=== PATIENT | male | born 1985 | race Caucasian/White ===

== ENCOUNTER 2019-02-07 11:24 | Inpatient (IN) | payer OTHER ==
[2019-02-07 11:55] VITALS: BMI 27.8
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
[2019-02-07] MEDS ORDERED: cloNIDine HCL 0.1 MG TABLET PO PRN (14:15)
[2019-02-07] MEDS ORDERED: hydrOXYzine PAMOATE 25 MG CAPSULE (FP) PO PRN ×2 (14:15→14:30)
[2019-02-07] MEDS ORDERED: MAG HYDROX/AL HYDROX/SIMETH 30 ML UNIT-DOSE CUP PO PRN (14:15)
[2019-02-07] MEDS ORDERED: MAGNESIUM HYDROX 2400MG/30ML ORAL SUSPENSION 30 ML CUP PO PRN (14:15)
[2019-02-07] MEDS ORDERED: MELATONIN 5 MG TABLETS PO PRN (14:15)
[2019-02-07] MEDS ORDERED: MAGNESIUM CITRATE 300 ML BOTTLE PO PRN (14:15)
[2019-02-07] MEDS ORDERED: IBUPROFEN 400 MG TABLET (FP) PO PRN (14:15)
[2019-02-07] MEDS ORDERED: METHOCARBAMOL 500 MG TABLET PO PRN (14:15)
[2019-02-07] MEDS ORDERED: ACETAMINOPHEN 325 MG TABLET (FP) PO PRN ×2 (14:15)
[2019-02-07] MEDS ORDERED: BISMUTH SUBSALICYLATE 262 MG/15 ML BTL PO PRN (14:15)
[2019-02-07] MEDS ORDERED: MENTHOL/PHENOL 1 EACH UD MM PRN (14:15)
[2019-02-07] MEDS ORDERED: METHADONE HCL 10 MG TABLET (FOR DETOX USE ONLY) PO ONE ×2 (15:30→23:00)
[2019-02-07] MEDS: clonazePAM 0.5 MG TABLET PO PRN ×2 (15:50→22:26)
[2019-02-07] MEDS: THIAMINE HCL 100 MG TABLET (FP) PO SCH (22:26)
[2019-02-07 23:24] LABS: HEMATOCRIT 40.3 % (35.4-49); HEMOGLOBIN 13.2 GM/dL (11.7-16.9); MCH 26.5 pg (25.7-33.7); MCHC 32.7 g/dl (32.0-35.9); MEAN CELL VOLUME 80.9 fl (80-96); RBC 4.98 M/mm3 (4.00-5.60); RDW 14.4 % (11.9-15.9); WHITE BLOOD COUNT 4.4 K/mm3 (4.0-10.0)
[2019-02-07 23:32] LABS: ALBUMIN 3.6 g/dl (3.4-5.0); BILIRUBIN,TOTAL 0.2 mg/dL (0.2-1); CALCIUM 8.9 mg/dL (8.5-10.1); CREATININE 0.8 mg/dL (0.55-1.3); POTASSIUM 4.3 mmol/L (3.5-5.1); TOT PROT 6.4 g/dl (6.4-8.2)
[2019-02-07 23:59] LABS: MEAN PLT VOLUME 8.4 fl (7.5-11.1); PLATELET COUNT 300 K/MM3 (134-434)
[2019-02-08 00:04] LABS: PH,URINE 6.5 (5.0-8.0); URINE APPEARANCE CLEAR; URINE BILIRUBIN NEGATIVE (NEGATIVE); URINE COLOR YELLOW; URINE GLUCOSE (UA) NEGATIVE (NEGATIVE); URINE KETONE NEGATIVE (NEGATIVE); URINE LEUK ESTERASE NEGATIVE (NEGATIVE); URINE NITRITE NEGATIVE (NEGATIVE); URINE PROTEIN NEGATIVE (NEGATIVE); URINE UROBILINOGEN 0.2 mg/dL (0.2-1.0)
[2019-02-08] MEDS ORDERED: METHADONE HCL 10 MG TABLET (FOR DETOX USE ONLY) PO ONE (10:00)
[2019-02-08] MEDS: PRENATAL VITAMINS W/ FOLIC ACID TABLET (FP) PO SCH (10:11)
--- NOTE | 2019-02-08 11:11 | PN ---
BHS COWS - Scale Resting Pulse: 0= [place] 80 or Below Sweatin= Chills/Flushing Restless Observation: 1= Difficult to Sit Still Pupil Size: 1= Pupils >than Normal Bone or Joint Aches: 1= Mild Discomfort Runny Nose/ Eye Tearin= Nasal Congestion GI Upset > 30mins: 1= Stomach Cramp Tremor Observation of Outstretched Hands: 1= Tremor [place], Not Seen Yawning Observation: 1= 1-2x During Session Anxiety or Irritability: 1=Feels Anxious/Irritable Goose Flesh Skin: 0=Smooth Skin COWS Score: 9 BHS Progress Note (SOAP) Subjective: doing well with methadone detox regimen ambulating on hallway social with peers Objective: 02/08/19 11:10 Vital Signs Temperature 98.9 F 02/08/19 09:14 Pulse Rate 61 02/08/19 09:14 Respiratory Rate 18 02/08/19 09:14 Blood Pressure 121/66 02/08/19 09:14 O2 Sat by Pulse Oximetry (%) Laboratory Last Values WBC 4.4 K/mm3 (4.0-10.0) 02/07/19 14:30 RBC 4.98 M/mm3 (4.00-5.60) 02/07/19 14:30 Hgb 13.2 GM/dL (11.7-16.9) 02/07/19 14:30 Hct 40.3 % (35.4-49) 02/07/19 14:30 MCV 80.9 fl (80-96) 02/07/19 14:30 MCH 26.5 pg (25.7-33.7) 02/07/19 14:30 MCHC 32.7 g/dl (32.0-35.9) 02/07/19 14:30 RDW 14.4 % (11.9-15.9) 02/07/19 14:30 Plt Count 300 K/MM3 (134-434) 02/07/19 14:30 MPV 8.4 fl (7.5-11.1) 02/07/19 14:30 Sodium 138 mmol/L (136-145) 02/07/19 14:30 Potassium 4.3 mmol/L (3.5-5.1) 02/07/19 14:30 Chloride 108 mmol/L (98-107) H 02/07/19 14:30 Carbon Dioxide 26 mmol/L (21-32) 02/07/19 14:30 Anion Gap 4 MMOL/L (8-16) L 02/07/19 14:30 BUN 15 mg/dL (7-18) 02/07/19 14:30 Creatinine 0.8 mg/dL (0.55-1.3) 02/07/19 14:30 Est GFR (CKD-EPI)AfAm 135.08 02/07/19 14:30 Est GFR (CKD-EPI)NonAf 116.55 02/07/19 14:30 Random Glucose 107 mg/dL (74-106) H 02/07/19 14:30 Calcium 8.9 mg/dL (8.5-10.1) 02/07/19 14:30 Total Bilirubin 0.2 mg/dL (0.2-1) 02/07/19 14:30 AST 27 U/L (15-37) 02/07/19 14:30 ALT 27 U/L (13-61) 02/07/19 14:30 Alkaline Phosphatase 112 U/L (45-117) 02/07/19 14:30 Total Protein 6.4 g/dl (6.4-8.2) 02/07/19 14:30 Albumin 3.6 g/dl (3.4-5.0) 02/07/19 14:30 Urine Color Yellow 02/07/19 15:00 Urine Appearance Clear 02/07/19 15:00 Urine pH 6.5 (5.0-8.0) 02/07/19 15:00 Ur Specific [place] 1.034 (1.010-1.035) 02/07/19 15:00 Urine Protein Negative (NEGATIVE) 02/07/19 15:00 Urine Glucose (UA) Negative (NEGATIVE) 02/07/19 15:00 Urine Ketones Negative (NEGATIVE) 02/07/19 15:00 Urine Blood Negative (NEGATIVE) 02/07/19 15:00 Urine Nitrite Negative (NEGATIVE) 02/07/19 15:00 Urine Bilirubin Negative (NEGATIVE) 02/07/19 15:00 Urine Urobilinogen 0.2 mg/dL (0.2-1.0) 02/07/19 15:00 Ur Leukocyte Esterase Negative (NEGATIVE) 02/07/19 15:00 RPR Titer Nonreactive (NONREACTIVE) 02/07/19 14:30 HIV 1&2 Antibody Screen Negative 02/07/19 14:05 HIV P24 Antigen Negative 02/07/19 14:05 lab noted Assessment: 02/08/19 11:10 withdrawal sx Plan: continue detox discuss medication assisted maintenance treatment program
[2019-02-08] MEDS: clonazePAM 0.5 MG TABLET PO PRN ×2 (17:30→23:23)
[2019-02-08] MEDS: THIAMINE HCL 100 MG TABLET (FP) PO SCH (22:08)
[2019-02-09] MEDS: PRENATAL VITAMINS W/ FOLIC ACID TABLET (FP) PO SCH (09:21)
[2019-02-09] MEDS: clonazePAM 0.5 MG TABLET PO PRN ×3 (09:23→23:27)
[2019-02-09] MEDS ORDERED: METHADONE HCL 10 MG TABLET (FOR DETOX USE ONLY) PO ONE (10:00)
--- NOTE | 2019-02-09 12:26 | PN ---
BHS COWS - Scale Resting Pulse: 0= [place] 80 or Below Sweatin= Chills/Flushing Restless Observation: 1= Difficult to Sit Still Pupil Size: 0= Normal to Room Light Bone or Joint Aches: 1= Mild Discomfort Runny Nose/ Eye Tearin= Nasal Congestion GI Upset > 30mins: 0= None Tremor Observation of Outstretched Hands: 1= Tremor [place], Not Seen Yawning Observation: 0= None Anxiety or Irritability: 1=Feels Anxious/Irritable Goose Flesh Skin: 0=Smooth Skin COWS Score: 6 BHS Progress Note (SOAP) Subjective: body aches otherwise feeling ok resting on bed encourage consider medication assisted maintenance treatment program Objective: 02/09/19 12:28 Vital Signs Temperature 97.6 F 02/09/19 09:49 Pulse Rate 71 02/09/19 09:49 Respiratory Rate 18 02/09/19 09:49 Blood Pressure 118/68 02/09/19 09:49 O2 Sat by Pulse Oximetry (%) Laboratory Last Values WBC 4.4 K/mm3 (4.0-10.0) 02/07/19 14:30 RBC 4.98 M/mm3 (4.00-5.60) 02/07/19 14:30 Hgb 13.2 GM/dL (11.7-16.9) 02/07/19 14:30 Hct 40.3 % (35.4-49) 02/07/19 14:30 MCV 80.9 fl (80-96) 02/07/19 14:30 MCH 26.5 pg (25.7-33.7) 02/07/19 14:30 MCHC 32.7 g/dl (32.0-35.9) 02/07/19 14:30 RDW 14.4 % (11.9-15.9) 02/07/19 14:30 Plt Count 300 K/MM3 (134-434) 02/07/19 14:30 MPV 8.4 fl (7.5-11.1) 02/07/19 14:30 Sodium 138 mmol/L (136-145) 02/07/19 14:30 Potassium 4.3 mmol/L (3.5-5.1) 02/07/19 14:30 Chloride 108 mmol/L (98-107) H 02/07/19 14:30 Carbon Dioxide 26 mmol/L (21-32) 02/07/19 14:30 Anion Gap 4 MMOL/L (8-16) L 02/07/19 14:30 BUN 15 mg/dL (7-18) 02/07/19 14:30 Creatinine 0.8 mg/dL (0.55-1.3) 02/07/19 14:30 Est GFR (CKD-EPI)AfAm 135.08 02/07/19 14:30 Est GFR (CKD-EPI)NonAf 116.55 02/07/19 14:30 Random Glucose 107 mg/dL (74-106) H 02/07/19 14:30 Calcium 8.9 mg/dL (8.5-10.1) 02/07/19 14:30 Total Bilirubin 0.2 mg/dL (0.2-1) 02/07/19 14:30 AST 27 U/L (15-37) 02/07/19 14:30 ALT 27 U/L (13-61) 02/07/19 14:30 Alkaline Phosphatase 112 U/L (45-117) 02/07/19 14:30 Total Protein 6.4 g/dl (6.4-8.2) 02/07/19 14:30 Albumin 3.6 g/dl (3.4-5.0) 02/07/19 14:30 Urine Color Yellow 02/07/19 15:00 Urine Appearance Clear 02/07/19 15:00 Urine pH 6.5 (5.0-8.0) 02/07/19 15:00 Ur Specific [place] 1.034 (1.010-1.035) 02/07/19 15:00 Urine Protein Negative (NEGATIVE) 02/07/19 15:00 Urine Glucose (UA) Negative (NEGATIVE) 02/07/19 15:00 Urine Ketones Negative (NEGATIVE) 02/07/19 15:00 Urine Blood Negative (NEGATIVE) 02/07/19 15:00 Urine Nitrite Negative (NEGATIVE) 02/07/19 15:00 Urine Bilirubin Negative (NEGATIVE) 02/07/19 15:00 Urine Urobilinogen 0.2 mg/dL (0.2-1.0) 02/07/19 15:00 Ur Leukocyte Esterase Negative (NEGATIVE) 02/07/19 15:00 RPR Titer Nonreactive (NONREACTIVE) 02/07/19 14:30 HIV 1&2 Antibody Screen Negative 02/07/19 14:05 HIV P24 Antigen Negative 02/07/19 14:05 lab noted Assessment: 02/09/19 12:31 opiate withdrawal sx Plan: continue detox
[2019-02-09] MEDS: THIAMINE HCL 100 MG TABLET (FP) PO SCH (22:12)
[2019-02-10] MEDS ORDERED: METHADONE HCL 10 MG TABLET (FOR DETOX USE ONLY) PO ONE (10:00)
[2019-02-10] MEDS: PRENATAL VITAMINS W/ FOLIC ACID TABLET (FP) PO SCH (10:17)
[2019-02-10] MEDS: clonazePAM 0.5 MG TABLET PO PRN (10:18)
[2019-02-10 13:04] VITALS: BP 122/74; PULSE 67; TEMP 98.4
--- NOTE | 2019-02-10 16:39 | PN ---
BHS COWS - Scale Resting Pulse: 0= [place] 80 or Below Sweatin= No chills or Flushing Restless Observation: 0= Sits Still Pupil Size: 0= Normal to Room Light Bone or Joint Aches: 0= None Runny Nose/ Eye Tearin= None GI Upset > 30mins: 0= None Tremor Observation of Outstretched Hands: 0= None Yawning Observation: 1= 1-2x During Session Anxiety or Irritability: 0= None Goose Flesh Skin: 0=Smooth Skin COWS Score: 1 BHS Progress Note (SOAP) Subjective: Patient denies current Withdrawal / Detox symptoms and reports that he feels well overall. Objective: PATIENT A & O X 3, OBSERVED AMBULATING ON UNIT UNASSISTED. IN NO ACUTE DISTRESS. 02/10/19 16:35 Vital Signs Temperature 98.4 F 02/10/19 13:03 Pulse Rate 67 02/10/19 13:03 Respiratory Rate 18 02/10/19 13:03 Blood Pressure 122/74 02/10/19 13:03 O2 Sat by Pulse Oximetry (%) Laboratory Tests 02/07/19 02/07/19 02/07/19 14:05 14:30 14:30 WBC 4.4 RBC 4.98 Hgb 13.2 Hct 40.3 MCV 80.9 MCH 26.5 MCHC 32.7 RDW 14.4 Plt Count 300 MPV 8.4 Sodium 138 Potassium 4.3 Chloride 108 H Carbon Dioxide 26 Anion Gap 4 L BUN 15 Creatinine 0.8 Est GFR (CKD-EPI)AfAm 135.08 Est GFR (CKD-EPI)NonAf 116.55 Random Glucose 107 H Calcium 8.9 Total Bilirubin 0.2 AST 27 ALT 27 Alkaline Phosphatase 112 Total Protein 6.4 Albumin 3.6 Urine Color Urine Appearance Urine pH Ur Specific [place] Urine Protein Urine Glucose (UA) Urine Ketones Urine Blood Urine Nitrite Urine Bilirubin Urine Urobilinogen Ur Leukocyte Esterase RPR Titer HIV 1&2 Antibody Screen Negative HIV P24 Antigen Negative 02/07/19 02/07/19 14:30 15:00 WBC RBC Hgb Hct MCV MCH MCHC RDW Plt Count MPV Sodium Potassium Chloride Carbon Dioxide Anion Gap BUN Creatinine Est GFR (CKD-EPI)AfAm Est GFR (CKD-EPI)NonAf Random Glucose Calcium Total Bilirubin AST ALT Alkaline Phosphatase Total Protein Albumin Urine Color Yellow Urine Appearance Clear Urine pH 6.5 Ur Specific [place] 1.034 Urine Protein Negative Urine Glucose (UA) Negative Urine Ketones Negative Urine Blood Negative Urine Nitrite Negative Urine Bilirubin Negative Urine Urobilinogen 0.2 Ur Leukocyte Esterase Negative RPR Titer Nonreactive HIV 1&2 Antibody Screen HIV P24 Antigen LABS NOTED. Assessment: 02/10/19 16:36 COMPLETION OF DETOX REGIMEN. 02/10/19 16:38 Plan: SINCE PATIENT DENIES CURRENT WITHDRAWAL / DETOX SYMPTOMS AND REPORTS THAT HE FEELS WELL OVERALL, AT PATIENTS REQUEST, HE WAS GRANTED AN EARLY DISCHARGE FROM DETOX UNIT TODAY SO THAT HE MAY RETURN HOME FOR THE NEXT COUPLE OF DAYS TO ATTEND TO PERSONAL MATTERS, THEN HE WILL GO ON TO [facility] ([place], [place]) FOR AFTERCARE.
--- NOTE | 2019-02-10 16:43 | DS ---
[facility] Detox Discharge Summary Admission Date: 02/07/19 Discharge Date: 02/10/19 - History Present History: Cocaine Dependence, Opioid Dependence Additional Comments: PATIENT DENIES CURRENT WITHDRAWAL / DETOX SYMPTOMS AND REPORTS THAT HE FEELS WELL OVERALL AT TIME OF DISCHARGE FROM DETOX UNIT. PATIENT RETURNING HOME FOR NEXT COUPLE OF DAYS TO ATTEND TO PERSONAL MATTERS, THEN WILL GO ON TO [facility] ([place], [place]) ON 02/13/2019 FOR AFTERCARE. Pertinent Past History: Tobacco Use Disorder, History of Thyroid Disorder, Blisters of Bilateral Feet. - Physical Exam Results Vital Signs: Vital Signs Temperature 98.4 F 02/10/19 13:03 Pulse Rate 67 02/10/19 13:03 Respiratory Rate 18 02/10/19 13:03 Blood Pressure 122/74 02/10/19 13:03 O2 Sat by Pulse Oximetry (%) Pertinent Admission Physical Exam Findings: WITHDRAWAL SYMPTOMS. Laboratory Tests 02/07/19 02/07/19 02/07/19 14:05 14:30 14:30 WBC 4.4 RBC 4.98 Hgb 13.2 Hct 40.3 MCV 80.9 MCH 26.5 MCHC 32.7 RDW 14.4 Plt Count 300 MPV 8.4 Sodium 138 Potassium 4.3 Chloride 108 H Carbon Dioxide 26 Anion Gap 4 L BUN 15 Creatinine 0.8 Est GFR (CKD-EPI)AfAm 135.08 Est GFR (CKD-EPI)NonAf 116.55 Random Glucose 107 H Calcium 8.9 Total Bilirubin 0.2 AST 27 ALT 27 Alkaline Phosphatase 112 Total Protein 6.4 Albumin 3.6 Urine Color Urine Appearance Urine pH Ur Specific [place] Urine Protein Urine Glucose (UA) Urine Ketones Urine Blood Urine Nitrite Urine Bilirubin Urine Urobilinogen Ur Leukocyte Esterase RPR Titer HIV 1&2 Antibody Screen Negative HIV P24 Antigen Negative 02/07/19 02/07/19 14:30 15:00 WBC RBC Hgb Hct MCV MCH MCHC RDW Plt Count MPV Sodium Potassium Chloride Carbon Dioxide Anion Gap BUN Creatinine Est GFR (CKD-EPI)AfAm Est GFR (CKD-EPI)NonAf Random Glucose Calcium Total Bilirubin AST ALT Alkaline Phosphatase Total Protein Albumin Urine Color Yellow Urine Appearance Clear Urine pH 6.5 Ur Specific [place] 1.034 Urine Protein Negative Urine Glucose (UA) Negative Urine Ketones Negative Urine Blood Negative Urine Nitrite Negative Urine Bilirubin Negative Urine Urobilinogen 0.2 Ur Leukocyte Esterase Negative RPR Titer Nonreactive HIV 1&2 Antibody Screen HIV P24 Antigen LABS NOTED. - Treatment Hospital Course: Detox Protocol Followed, Detoxed Safely, Responded well, Discharged Condition Good, Rehab Referral Accepted Patient has Accepted a Rehab Referral to: [facility] ([place], [place]). - Medication Discharge Medications: Ambulatory Orders NK [No Known Home Medication] 02/07/19 - Diagnosis (1) Cocaine use disorder Current Visit: Yes Status: Acute (2) Friction blister of the foot Current Visit: Yes Status: Acute Qualifiers: Encounter type: subsequent encounter Laterality: unspecified laterality Qualified Code(s): S90.829D - Blister (nonthermal), unspecified foot, subsequent encounter (3) Opioid use disorder Current Visit: Yes Status: Acute (4) Tobacco use disorder Current Visit: Yes Status: Acute - AMA Did Patient Leave Against Medical Advice: No
[2019-02-11] MEDS ORDERED: METHADONE HCL 5 MG TABLET (FOR DETOX USE ONLY) PO ONE (06:00)
== END 2019-02-10 17:15 | disposition home or self-care (01) | DRG 773 ==
LOC: YASAS 11:24 → Y3N 14:43
PROVIDERS: ADMIT Surgery; ATTEND Surgery
PROC: HZ2ZZZZ Detoxification Services for Substance Abuse Treatment (ICD-10-PCS; principal; 2019-02-07)
DX: F11.23 Opioid dependence with withdrawal (principal); F14.20 Cocaine dependence, uncomplicated; F17.210 Nicotine dependence, cigarettes, uncomplicated; S90.829D Blister (nonthermal), unspecified foot, subsequent encounter; X58.XXXD Exposure to other specified factors, subsequent encounter
CPT/HCPCS: 36415; 80053; 81003; 85027; 86593; 87389; J0735

== ENCOUNTER 2019-03-25 18:50 | Inpatient (IN) | payer OTHER ==
--- NOTE | 2019-03-25 23:47 | HP ---
COWS - Scale Resting Pulse: 0= [place] 80 or Below Sweatin=Flushed/Facial Moisture Restless Observation: 1= Difficult to Sit Still Pupil Size: 1= Pupils >than Normal Bone or Joint Aches: 4=Acute Joint/Muscle Pain Runny Nose/ Eye Tearin= None GI Upset > 30mins: 0= None Tremor Observation: 0= None Yawning Observation: 1= 1-2x During Session Anxiety or Irritability: 2=Irritable/Anxious Goose Flesh Skin: 0=Smooth Skin COWS Score: 11 CIWA Score - Admission Criteria OASAS Guidelines: Admission for Medically Managed Detox: Requires at least one of the followin. CIWA greater than 12 2. Seizures within the past 24 hours 3. Delirium tremens within the past 24 hours 4. Hallucinations within the past 24 hours 5. Acute intervention needed for co occurring medical disorder 6. Acute intervention needed for co occurring psychiatric disorder 7. Severe withdrawal that cannot be handled at a lower level of care (continued vomiting, continued diarrhea, abnormal vital signs) requiring intravenous medication and/or fluids 8. Admission [facility] Chief Complaint: c/o withdrawal sx's Allergies/Adverse Reactions: Allergies Allergy/AdvReac Type Severity Reaction Status Date / Time No Known Allergies Allergy Verified 03/25/19 22:50 History of Present Illness: 33 y.o. male with hx/o heroin dependence here for detox. c/o withdrawal sx's, cows 11.he is self referred. last here 4 weeks ago. reports relase after dc. longest clean time 8 months.. reports hx/o drug od x1. denies sz d/o. homeless, unemployed, denies legals Exam Limitations: No Limitations - Ebola screening Have you traveled outside of the country in the last 21 days: No Have you been sick,other than usual withdrawal symptoms: No Do you have a fever: No - Review of Systems Constitutional: Chills, Loss of Appetite, Malaise, Night Sweats, Changes in sleep EENT: reports: No Symptoms Reported Respiratory: reports: No Symptoms reported Cardiac: reports: No Symptoms Reported GI: reports: Poor Fluid Intake, Abdominal cramping : reports: No Symptoms Reported Musculoskeletal: reports: Back Pain Integumentary: reports: Other (blisters to ble) Neuro: reports: No Symptoms reported Endocrine: reports: No Symptoms Reported Hematology: reports: No Symptoms Reported Psychiatric: reports: Orientated x3, Agitated (irritable) Other Systems: Reviewed and Negative Patient History - Patient Medical History Hx Anemia: No Hx Asthma: No Hx Chronic Obstructive Pulmonary Disease (COPD): No Hx Cancer: No Hx Cardiac Disorders: No Hx Congestive Heart Failure: No Hx Hypertension: No Hx Hypercholesterolemia: No Hx Pacemaker: No HX Cerebrovascular Accident: No Hx Seizures: No Hx Dementia: No Hx Diabetes: No Hx Gastrointestinal Disorders: No Hx Liver Disease: No Hx Genitourinary Disorders: No Hx Sexually Transmitted Disorders: No Hx Renal Disease (ESRD): No Hx Thyroid Disease: No Hx Human Immunodeficiency Virus (HIV): No Hx Hepatitis C: No Hx Depression: No Hx Suicide Attempt: No Hx Bipolar Disorder: No Hx Schizophrenia: No - Patient Surgical History Past Surgical History: No Hx Neurologic Surgery: No Hx Cataract Extraction: No Hx Cardiac Surgery: No Hx Lung Surgery: No Hx Breast Surgery: No Hx Breast Biopsy: No Hx Abdominal Surgery: No Hx Appendectomy: No Hx Cholecystectomy: No Hx Genitourinary Surgery: No Hx Section: No Hx Orthopedic Surgery: No Anesthesia Reaction: No - PPD History Previous Implant?: Yes Documented Results: Negative w/proof Date: 02/09/19 Results: 0mm PPD to be Administered?: No - Smoking Cessation Smoking history: Current every day smoker Have you smoked in the past 12 months: Yes Aproximately how many cigarettes per day: 20 Cigars Per Day: 0 Hx Chewing Tobacco Use: No Initiated information on smoking cessation: Yes 'Breaking Loose' booklet given: 03/25/19 - Substance & Tx. History Hx Alcohol Use: No Hx Substance Use: No Substance Use Type: Cocaine, Heroin Hx Substance Use Treatment: Yes ([facility]) - Substances abused Cocaine Substance route: Inhalation Frequency: Daily Amount used: $20 Age of first use: 15 Date of last use: 03/25/19 Heroin Substance route: Inhalation Frequency: Daily Amount used: 10-15 BAGS Age of first use: 29 Date of last use: 03/25/19 Family Disease History - Family Disease History Family Disease History: Other: Father (addiction to heroin/cocaine), Sister ( lupus) Admission Physical Exam BHS - Vital Signs Vital Signs: Vital Signs - 24 hr 03/25/19 22:49 Temperature 98.4 F Pulse Rate 59 L Respiratory 18 Rate Blood Pressure 109/74 - Physical General Appearance: Yes: Moderate Distress, Irritable, Anxious HEENTM: Yes: EOMI, Normocephalic, Normal Voice, BREANNA, Pharynx Normal Respiratory: Yes: Chest Non-Tender, Lungs Clear, Normal Breath Sounds, No Respiratory Distress, No Accessory Muscle Use Breast: Yes: Within Normal Limits, Axillae without masses Cardiology: Yes: Regular Rhythm, Regular Rate, S1, S2 Abdominal: Yes: Normal Bowel Sounds, Non Tender, Soft Genitourinary: Yes: Within Normal Limits Back: Yes: Normal Inspection Musculoskeletal: Yes: full range of Motion, Gait Steady Extremities: Yes: Normal Range of Motion, Non-Tender Neurological: Yes: Fully Oriented, Alert, Depressed Affect Integumentary: Yes: Warm, Moist Lymphatic: Yes: Within Normal Limits - Diagnostic (1) Opioid dependence with withdrawal Current Visit: Yes Status: Acute (2) Cocaine abuse, uncomplicated Current Visit: Yes Status: Acute (3) Homeless Current Visit: Yes Status: Suspected (4) At risk for dehydration due to poor fluid intake Current Visit: Yes Status: Acute (5) Substance induced mood disorder Current Visit: Yes Status: Suspected Cleared for Admission [facility] - Detox or Rehab [facility] Level of Care: Medically Managed Detox Regimen/Protocol: Methadone Claeared for Rehab Admission: No Breathalyzer - Breathalyzer Breathalyzer: 0 Urine Drug Screen - Test Device Lot number: [id number] Expiration date: 11/24/20 - Control Is test valid?: Yes - Results Drug screen NEGATIVE: No Urine drug screen results: THC-Marijuana, LAN-Cocaine, MET-Methamphetamine, FEN- Fentanyl, MOP-Opiates, MTD-Methadone, BZO-Benzodiazepines Inpatient Rehab Admission - Rehab Decision to Admit Inpatient rehab admission?: No
[2019-03-25] MEDS ORDERED: P-EPHED 60MG/TRIPROLIDI 2.5MG TABLET PO PRN (23:56)
[2019-03-25] MEDS ORDERED: guaiFENesin 200 MG/10 ML 10 ML UNIT-DOSE CUPS PO PRN (23:56)
[2019-03-25] MEDS ORDERED: MENTHOL/PHENOL 1 EACH UD MM PRN (23:56)
[2019-03-25] MEDS ORDERED: IBUPROFEN 400 MG TABLET (FP) PO PRN (23:56)
[2019-03-25] MEDS ORDERED: METHOCARBAMOL 500 MG TABLET PO PRN (23:56)
[2019-03-25] MEDS ORDERED: hydrOXYzine PAMOATE 25 MG CAPSULE (FP) PO PRN (23:56)
[2019-03-25] MEDS ORDERED: MELATONIN 5 MG TABLETS PO PRN (23:56)
[2019-03-25] MEDS ORDERED: MAGNESIUM HYDROX 2400MG/30ML ORAL SUSPENSION 30 ML CUP PO PRN (23:56)
[2019-03-25] MEDS ORDERED: BISMUTH SUBSALICYLATE 524 MG/30 ML UD PO PRN (23:56)
[2019-03-25] MEDS ORDERED: ONDANSETRON *ODT* 4 MG TABLET SL PRN (23:56)
[2019-03-25] MEDS ORDERED: NICOTINE POLACRILEX 2 MG GUM BUC PRN (23:56)
[2019-03-25] MEDS ORDERED: DICYCLOMINE HCL 10 MG CAPSULE PO PRN (23:56)
[2019-03-25] MEDS ORDERED: MAGNESIUM CITRATE 300 ML BOTTLE PO PRN (23:56)
[2019-03-25] MEDS ORDERED: MAG HYDROX/AL HYDROX/SIMETH 30 ML UNIT-DOSE CUP PO PRN (23:56)
[2019-03-25] MEDS ORDERED: ACETAMINOPHEN 325 MG TABLET (FP) PO PRN ×2 (23:56)
[2019-03-26] MEDS ORDERED: cloNIDine HCL 0.1 MG TABLET PO PRN (00:02)
[2019-03-26] MEDS ORDERED: METHADONE HCL 10 MG TABLET (FOR DETOX USE ONLY) PO ONE ×2 (00:02→10:00)
[2019-03-26 09:33] LABS: ALBUMIN 3.2 g/dl (3.4-5.0); BILIRUBIN,TOTAL 0.3 mg/dL (0.2-1); CALCIUM 8.6 mg/dL (8.5-10.1); POTASSIUM 4.1 mmol/L (3.5-5.1); TOT PROT 6.3 g/dl (6.4-8.2)
[2019-03-26 09:45] LABS: HEMATOCRIT 38.3 % (35.4-49); HEMOGLOBIN 12.5 GM/dL (11.7-16.9); MCH 26.3 pg (25.7-33.7); MCHC 32.6 g/dl (32.0-35.9); MEAN CELL VOLUME 80.8 fl (80-96); MEAN PLT VOLUME 7.9 fl (7.5-11.1); RBC 4.74 M/mm3 (4.00-5.60); RDW 14.2 % (11.9-15.9); WHITE BLOOD COUNT 5.6 K/mm3 (4.0-10.0)
[2019-03-26] MEDS ORDERED: NICOTINE 14 MG/24 HOURS TOPICAL PATCH TD SCH (10:00)
[2019-03-26 10:12] LABS: PLATELET COUNT 338 K/MM3 (134-434)
[2019-03-26] MEDS: PRENATAL VITAMINS W/ FOLIC ACID TABLET (FP) PO SCH (10:22)
[2019-03-26] MEDS: NICOTINE 14 MG/24 HOURS TOPICAL PATCH TD SCH (10:22)
[2019-03-26 10:43] LABS: PH,URINE 5.5 (5.0-8.0); URINE APPEARANCE TURBID; URINE BILIRUBIN NEGATIVE (NEGATIVE); URINE COLOR YELLOW; URINE GLUCOSE (UA) NEGATIVE (NEGATIVE); URINE KETONE TRACE (NEGATIVE); URINE LEUK ESTERASE NEGATIVE (NEGATIVE); URINE NITRITE NEGATIVE (NEGATIVE); URINE PROTEIN NEGATIVE (NEGATIVE)
--- NOTE | 2019-03-26 12:15 | PN ---
S CIWA - CIWA Score Nausea/Vomitin-No Nausea/No Vomiting Muscle Tremors: 3 Anxiety: 4-Mod. Anxious/Guarded Agitation: 4-Moderately Restless Paroxysmal Sweats: 1-Minimal Palms Moist Orientation: 0-Oriented Tacttile Disturbances: 0-None Auditory Disturbances: 0-None Visual Disturbances: 0-None Headache: 0-None Present CIWA-Ar Total Score: 12 BHS COWS - Scale Resting Pulse: 0= [place] 80 or Below Sweatin= Chills/Flushing Restless Observation: 3= Extraneous Movement Pupil Size: 0= Normal to Room Light Bone or Joint Aches: 4=Acute Joint/Muscle Pain Runny Nose/ Eye Tearin= None GI Upset > 30mins: 1= Stomach Cramp Tremor Observation of Outstretched Hands: 1= Tremor [place], Not Seen Yawning Observation: 1= 1-2x During Session Anxiety or Irritability: 2=Irritable/Anxious Goose Flesh Skin: 0=Smooth Skin COWS Score: 13 S Progress Note (SOAP) Subjective: c/o anxiety,irritability,hot/cold chills,body aches,"tossed/turned" last night- intermittent sleep. Objective: 03/26/19 12:17 Vital Signs - 24 hr 03/25/19 03/26/19 03/26/19 22:49 00:50 00:53 Temperature 98.4 F 96.7 F L Pulse Rate 59 L 58 L Respiratory 18 18 18 Rate Blood Pressure 109/74 109/69 03/26/19 03/26/19 03/26/19 03:46 06:19 09:42 Temperature 97.2 F L 97.5 F L Pulse Rate 51 L 57 L Respiratory 18 18 18 Rate Blood Pressure 100/58 L 92/54 L Laboratory Tests 03/26/19 03/26/19 03/26/19 07:30 07:30 07:30 WBC 5.6 RBC 4.74 Hgb 12.5 Hct 38.3 MCV 80.8 MCH 26.3 MCHC 32.6 RDW 14.2 Plt Count 338 MPV 7.9 Sodium 142 Potassium 4.1 Chloride 105 Carbon Dioxide 32 Anion Gap 5 L BUN 15.0 Creatinine 1.0 Est GFR (CKD-EPI)AfAm 113.31 Est GFR (CKD-EPI)NonAf 97.76 Random Glucose 78 Calcium 8.6 Total Bilirubin 0.3 AST 13 L ALT 18 Alkaline Phosphatase 113 Total Protein 6.3 L Albumin 3.2 L Urine Color Urine Appearance Urine pH Ur Specific [place] Urine Protein Urine Glucose (UA) Urine Ketones Urine Blood Urine Nitrite Urine Bilirubin Urine Urobilinogen Ur Leukocyte Esterase RPR Titer Nonreactive 03/26/19 08:40 WBC RBC Hgb Hct MCV MCH MCHC RDW Plt Count MPV Sodium Potassium Chloride Carbon Dioxide Anion Gap BUN Creatinine Est GFR (CKD-EPI)AfAm Est GFR (CKD-EPI)NonAf Random Glucose Calcium Total Bilirubin AST ALT Alkaline Phosphatase Total Protein Albumin Urine Color Yellow Urine Appearance Turbid Urine pH 5.5 Ur Specific [place] 1.036 H Urine Protein Negative Urine Glucose (UA) Negative Urine Ketones Trace H Urine Blood Negative Urine Nitrite Negative Urine Bilirubin Negative Urine Urobilinogen 1.0 Ur Leukocyte Esterase Negative RPR Titer Assessment: 03/26/19 12:18 withdrawal sx Plan: continue detox increase po fluids
--- NOTE | 2019-03-26 12:45 | PN ---
Elaine Progress Note Note: Patient approached twice at bedtime by fha underwriter to solicitate interview. Told fha underwriter::" I'm don't feel good right now. can we do it later"
[2019-03-26] MEDS: THIAMINE HCL 100 MG TABLET (FP) PO SCH (22:32)
[2019-03-26] MEDS: clonazePAM 0.5 MG TABLET PO PRN (22:33)
[2019-03-27] MEDS ORDERED: METHADONE HCL 10 MG TABLET (FOR DETOX USE ONLY) PO ONE (10:00)
[2019-03-27] MEDS: PRENATAL VITAMINS W/ FOLIC ACID TABLET (FP) PO SCH (10:22)
[2019-03-27] MEDS: clonazePAM 0.5 MG TABLET PO PRN ×3 (10:24→22:38)
[2019-03-27] MEDS: NICOTINE 14 MG/24 HOURS TOPICAL PATCH TD SCH (10:24)
--- NOTE | 2019-03-27 15:49 | PN ---
BHS COWS - Scale Resting Pulse: 0= [place] 80 or Below Sweatin= Chills/Flushing Restless Observation: 1= Difficult to Sit Still Pupil Size: 0= Normal to Room Light Bone or Joint Aches: 2= Severe Diffuse Aches Runny Nose/ Eye Tearin= None GI Upset > 30mins: 0= None Tremor Observation of Outstretched Hands: 0= None Yawning Observation: 1= 1-2x During Session Anxiety or Irritability: 2=Irritable/Anxious Goose Flesh Skin: 3=Piloerection COWS Score: 10 BHS Progress Note (SOAP) Subjective: Body Aches, Sweating, Interrupted Sleep. Objective: PATIENT A & O X 3, OBSERVED AMBULATING ON UNIT UNASSISTED. IN NO ACUTE DISTRESS. 03/27/19 15:47 Vital Signs Temperature 98.2 F 03/27/19 13:27 Pulse Rate 56 L 03/27/19 13:27 Respiratory Rate 18 03/27/19 13:27 Blood Pressure 116/69 03/27/19 13:27 O2 Sat by Pulse Oximetry (%) Laboratory Tests 03/26/19 03/26/19 03/26/19 07:30 07:30 07:30 WBC 5.6 RBC 4.74 Hgb 12.5 Hct 38.3 MCV 80.8 MCH 26.3 MCHC 32.6 RDW 14.2 Plt Count 338 MPV 7.9 Sodium 142 Potassium 4.1 Chloride 105 Carbon Dioxide 32 Anion Gap 5 L BUN 15.0 Creatinine 1.0 Est GFR (CKD-EPI)AfAm 113.31 Est GFR (CKD-EPI)NonAf 97.76 Random Glucose 78 Calcium 8.6 Total Bilirubin 0.3 AST 13 L ALT 18 Alkaline Phosphatase 113 Total Protein 6.3 L Albumin 3.2 L Urine Color Urine Appearance Urine pH Ur Specific [place] Urine Protein Urine Glucose (UA) Urine Ketones Urine Blood Urine Nitrite Urine Bilirubin Urine Urobilinogen Ur Leukocyte Esterase RPR Titer Nonreactive 03/26/19 08:40 WBC RBC Hgb Hct MCV MCH MCHC RDW Plt Count MPV Sodium Potassium Chloride Carbon Dioxide Anion Gap BUN Creatinine Est GFR (CKD-EPI)AfAm Est GFR (CKD-EPI)NonAf Random Glucose Calcium Total Bilirubin AST ALT Alkaline Phosphatase Total Protein Albumin Urine Color Yellow Urine Appearance Turbid Urine pH 5.5 Ur Specific [place] 1.036 H Urine Protein Negative Urine Glucose (UA) Negative Urine Ketones Trace H Urine Blood Negative Urine Nitrite Negative Urine Bilirubin Negative Urine Urobilinogen 1.0 Ur Leukocyte Esterase Negative RPR Titer LABS NOTED. Assessment: 03/27/19 15:47 WITHDRAWAL SYMPTOMS. Plan: CONTINUE DETOX.
[2019-03-27] MEDS: THIAMINE HCL 100 MG TABLET (FP) PO SCH (22:19)
--- NOTE | 2019-03-28 09:57 | PN ---
BHS COWS - Scale Resting Pulse: 0= [place] 80 or Below Sweatin= Chills/Flushing Restless Observation: 1= Difficult to Sit Still Pupil Size: 0= Normal to Room Light Bone or Joint Aches: 1= Mild Discomfort Runny Nose/ Eye Tearin= Nasal Congestion GI Upset > 30mins: 1= Stomach Cramp Tremor Observation of Outstretched Hands: 1= Tremor [place], Not Seen Yawning Observation: 1= 1-2x During Session Anxiety or Irritability: 1=Feels Anxious/Irritable Goose Flesh Skin: 0=Smooth Skin COWS Score: 8 BHS Progress Note (SOAP) Subjective: alert,irritable,anxious,interrupted sleep,pain in the body Objective: 03/28/19 09:56 Vital Signs Temperature 97.4 F L 03/28/19 09:16 Pulse Rate 65 03/28/19 09:16 Respiratory Rate 18 03/28/19 09:16 Blood Pressure 123/72 03/28/19 09:16 O2 Sat by Pulse Oximetry (%) Assessment: 03/28/19 09:56 withdrawal symptom Plan: continue detox
[2019-03-28] MEDS ORDERED: METHADONE HCL 10 MG TABLET (FOR DETOX USE ONLY) PO ONE (10:00)
[2019-03-28] MEDS: clonazePAM 0.5 MG TABLET PO PRN ×2 (10:30→17:01)
[2019-03-28] MEDS: NICOTINE 14 MG/24 HOURS TOPICAL PATCH TD SCH (10:30)
[2019-03-28] MEDS: PRENATAL VITAMINS W/ FOLIC ACID TABLET (FP) PO SCH (10:30)
[2019-03-28 17:18] VITALS: BP 126/80; PULSE 63; TEMP 97.9
[2019-03-29] MEDS ORDERED: METHADONE HCL 10 MG TABLET (FOR DETOX USE ONLY) PO ONE (10:00)
[2019-03-30] MEDS ORDERED: METHADONE HCL 5 MG TABLET (FOR DETOX USE ONLY) PO ONE (06:00)
== END 2019-03-28 18:25 | disposition left against medical advice (07) | DRG 770 ==
LOC: YASAS 18:50 → Y3N 23:47
PROVIDERS: ADMIT Surgery; ATTEND Surgery
PROC: HZ2ZZZZ Detoxification Services for Substance Abuse Treatment (ICD-10-PCS; principal; 2019-03-25)
DX: F11.23 Opioid dependence with withdrawal (principal); F13.20 Sedative, hypnotic or anxiolytic dependence, uncomplicated; F17.210 Nicotine dependence, cigarettes, uncomplicated; F19.24 Other psychoactive substance dependence with psychoactive substance-induced mood disorder; Z91.89 Other specified personal risk factors, not elsewhere classified; Z59.0 Homelessness
CPT/HCPCS: 36415; 80053; 81003; 85027; 86593

== ENCOUNTER 2019-08-31 15:43 | Inpatient (IN) | payer OTHER ==
[2019-08-31 18:15] VITALS: BMI 23.9
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
[2019-08-31] MEDS ORDERED: BISMUTH SUBSALICYLATE 524 MG/30 ML UD PO PRN (20:56)
[2019-08-31] MEDS ORDERED: ACETAMINOPHEN 325 MG TABLET (FP) PO PRN ×2 (20:56)
[2019-08-31] MEDS ORDERED: MELATONIN 5 MG TABLETS PO PRN (20:56)
[2019-08-31] MEDS ORDERED: NICOTINE POLACRILEX 2 MG GUM BUC PRN (20:56)
[2019-08-31] MEDS ORDERED: hydrOXYzine PAMOATE 25 MG CAPSULE (FP) PO PRN (20:56)
[2019-08-31] MEDS ORDERED: METHADONE HCL 10 MG TABLET (FOR DETOX USE ONLY) PO ONE (20:56)
[2019-08-31] MEDS ORDERED: METHOCARBAMOL 500 MG TABLET PO PRN (20:56)
[2019-08-31] MEDS ORDERED: IBUPROFEN 400 MG TABLET (FP) PO PRN (20:56)
[2019-08-31] MEDS ORDERED: MAGNESIUM CITRATE 300 ML BOTTLE PO PRN (20:56)
[2019-08-31] MEDS ORDERED: MAG HYDROX/AL HYDROX/SIMETH 30 ML UNIT-DOSE CUP PO PRN (20:56)
[2019-08-31] MEDS ORDERED: MAGNESIUM HYDROX 2400MG/30ML ORAL SUSPENSION 30 ML CUP PO PRN (20:56)
[2019-08-31] MEDS ORDERED: MENTHOL/PHENOL 1 EACH UD MM PRN (20:56)
[2019-08-31] MEDS ORDERED: cloNIDine HCL 0.1 MG TABLET PO PRN (20:56)
[2019-08-31] MEDS: THIAMINE HCL 100 MG TABLET (FP) PO SCH (22:03)
[2019-09-01] MEDS ORDERED: METHADONE HCL 5 MG TABLET (FOR DETOX USE ONLY) PO ONE (10:00)
--- NOTE | 2019-09-01 10:00 | PN ---
BHS COWS - Scale Resting Pulse: 0= [place] 80 or Below Sweatin= Chills/Flushing Restless Observation: 1= Difficult to Sit Still Pupil Size: 0= Normal to Room Light Bone or Joint Aches: 2= Severe Diffuse Aches Runny Nose/ Eye Tearin= Runny Nose/Eyes GI Upset > 30mins: 0= None Tremor Observation of Outstretched Hands: 1= Tremor [place], Not Seen Yawning Observation: 2= >3x During Session Anxiety or Irritability: 1=Feels Anxious/Irritable Goose Flesh Skin: 0=Smooth Skin COWS Score: 10 BHS Progress Note (SOAP) Subjective: sweats irritable agitation interrupted sleep Objective: 09/01/19 09:59 Vital Signs Temperature 97.9 F 09/01/19 09:49 Pulse Rate 63 09/01/19 09:49 Respiratory Rate 16 09/01/19 09:49 Blood Pressure 144/73 09/01/19 09:49 O2 Sat by Pulse Oximetry (%) labs pending [id number] ambulating no acute distress Assessment: 09/01/19 09:59 withdrawals Plan: continue detox increase fluids pending labs
[2019-09-01 10:14] LABS: HEMATOCRIT 37.6 % (35.4-49); HEMOGLOBIN 12.1 GM/dL (11.7-16.9); MCH 25.8 pg (25.7-33.7); MCHC 32.1 g/dl (32.0-35.9); MEAN CELL VOLUME 80.2 fl (80-96); MEAN PLT VOLUME 7.6 fl (7.5-11.1); PLATELET COUNT 477 K/MM3 (134-434); RBC 4.69 M/mm3 (4.00-5.60); RDW 15.8 % (11.9-15.9); WHITE BLOOD COUNT 5.3 K/mm3 (4.0-10.0)
[2019-09-01 10:15] LABS: ALBUMIN 3.2 g/dl (3.4-5.0); BILIRUBIN,TOTAL 0.1 mg/dL (0.2-1); BLOOD UREA NITROGEN 13.8 mg/dL (7-18); CALCIUM 9.2 mg/dL (8.5-10.1); POTASSIUM 4.5 mmol/L (3.5-5.1); TOT PROT 6.2 g/dl (6.4-8.2)
[2019-09-01] MEDS: PRENATAL VITAMINS W/ FOLIC ACID TABLET (FP) PO SCH (10:27)
[2019-09-01] MEDS: diazePAM 5 MG TABLET PO PRN ×2 (10:27→20:20)
[2019-09-01] MEDS: NICOTINE 14 MG/24 HOURS TOPICAL PATCH TD SCH (10:29)
[2019-09-01] MEDS: THIAMINE HCL 100 MG TABLET (FP) PO SCH (22:25)
[2019-09-02] MEDS ORDERED: METHADONE HCL 10 MG TABLET (FOR DETOX USE ONLY) PO ONE (10:00)
[2019-09-02] MEDS: PRENATAL VITAMINS W/ FOLIC ACID TABLET (FP) PO SCH (10:51)
[2019-09-02] MEDS: diazePAM 5 MG TABLET PO PRN (10:51)
[2019-09-02] MEDS: NICOTINE 14 MG/24 HOURS TOPICAL PATCH TD SCH (10:54)
[2019-09-02 13:56] VITALS: BP 128/75
[2019-09-02 13:59] VITALS: PULSE 68; TEMP 98.1
--- NOTE | 2019-09-02 18:31 | DS ---
[facility] Detox Discharge Summary Admission Date: 08/31/19 Discharge Date: 09/02/19 - History Present History: Cocaine Dependence, Opioid Dependence Additional Comments: DESPITE EFFORTS BY ALMOND SORTER AND BY NURSING STAFF TO ADDRESS PATIENT'S MEDICAL NEEDS / CONCERNS, PATIENT DOES NOT WISH TO REMAIN TO COMPLETE DETOX REGIMEN. RISKS OF LEAVING DETOX UNIT AGAINST MEDICAL ADVICE AND PRIOR TO COMPLETION OF DETOX REGIMEN EXPLAINED TO PATIENT. PATIENT ADVISED TO GO IMMEDIATELY TO NEAREST ER SHOULD ANY INTOLERABLE WITHDRAWAL / DETOX SYMPTOMS DEVELOP AT ANY TIME. PATIENT VERBALIZED UNDERSTANDING OF ALL INFORMATION / RECOMMENDATIONS PRESENTED TO HIM PRIOR TO DEPARTURE FROM DETOX UNIT. PATIENT LEFT DETOX UNIT IN STABLE MEDICAL CONDITION. Pertinent Past History: Tobacco Use Disorder. - Physical Exam Results Vital Signs: Vital Signs Temperature 98.1 F 09/02/19 13:58 Pulse Rate 68 09/02/19 13:58 Respiratory Rate 18 09/02/19 13:58 Blood Pressure 128/75 09/02/19 13:58 O2 Sat by Pulse Oximetry (%) Pertinent Admission Physical Exam Findings: WITHDRAWAL SYMPTOMS. Laboratory Tests 09/01/19 09/01/19 09/01/19 07:45 07:45 07:45 WBC 5.3 RBC 4.69 Hgb 12.1 Hct 37.6 MCV 80.2 MCH 25.8 MCHC 32.1 RDW 15.8 D Plt Count 477 H D MPV 7.6 Sodium 143 Potassium 4.5 Chloride 109 H Carbon Dioxide 29 Anion Gap 5 L BUN 13.8 Creatinine 1.0 Est GFR (CKD-EPI)AfAm 113.31 Est GFR (CKD-EPI)NonAf 97.76 Random Glucose 102 Calcium 9.2 Total Bilirubin 0.1 L AST 8 L ALT 27 Alkaline Phosphatase 115 Total Protein 6.2 L Albumin 3.2 L RPR Titer Nonreactive LABS NOTED. - Medication Discharge Medications: Ambulatory Orders NK [No Known Home Medication] 02/07/19 - Diagnosis (1) Opioid dependence with withdrawal Status: Acute (2) Tobacco use disorder Status: Acute (3) Homeless Status: Suspected (4) Cocaine use disorder Status: Acute - AMA Did Patient Leave Against Medical Advice: Yes (PATIENT DID NOT WISH TO REMAIN TO COMPLETE DETOX REGIMEN.)
[2019-09-03] MEDS ORDERED: METHADONE HCL 5 MG TABLET (FOR DETOX USE ONLY) PO ONE (06:00)
== END 2019-09-02 14:28 | disposition left against medical advice (07) | DRG 770 ==
LOC: YASAS 15:43 → Y6N 21:36
PROVIDERS: ADMIT Allergy & Immunology; ATTEND Allergy & Immunology
PROC: HZ2ZZZZ Detoxification Services for Substance Abuse Treatment (ICD-10-PCS; principal; 2019-08-31)
DX: F11.23 Opioid dependence with withdrawal (principal); F14.20 Cocaine dependence, uncomplicated; F17.210 Nicotine dependence, cigarettes, uncomplicated; Z59.0 Homelessness
CPT/HCPCS: 36415; 80053; 85027; 86593

== ENCOUNTER 2019-10-25 12:15 | Inpatient (IN) | payer OTHER ==
--- NOTE | 2019-10-25 12:55 | HP ---
COWS - Scale Resting Pulse: 0= [place] 80 or Below Sweatin= Chills/Flushing Restless Observation: 1= Difficult to Sit Still Pupil Size: 1= Pupils >than Normal Bone or Joint Aches: 2= Severe Diffuse Aches Runny Nose/ Eye Tearin= Nasal Congestion GI Upset > 30mins: 2= Nausea/Diarrhea Tremor Observation: 1= Tremor [place], Not Seen Yawning Observation: 1= 1-2x During Session Anxiety or Irritability: 2=Irritable/Anxious Goose Flesh Skin: 3=Piloerection COWS Score: 15 CIWA Score - Admission Criteria OASAS Guidelines: Admission for Medically Managed Detox: Requires at least one of the followin. CIWA greater than 12 2. Seizures within the past 24 hours 3. Delirium tremens within the past 24 hours 4. Hallucinations within the past 24 hours 5. Acute intervention needed for co occurring medical disorder 6. Acute intervention needed for co occurring psychiatric disorder 7. Severe withdrawal that cannot be handled at a lower level of care (continued vomiting, continued diarrhea, abnormal vital signs) requiring intravenous medication and/or fluids 8. Admitting History and Physical - Admission Chief Complaint: " I tired of living on the streets and I want my family and my life back." History of Present Illness: Patient is a 33 yo male homeless with hx of heroin dependence is here seeking inpatient detox d/t withdrawal sx. Reports hx of overdose x 1 about three years ago. Reports longest period of sobriety four months but keeps relapsing. last detox [facility] 08/31-03/2019 but he signed out AMA and did not complete detox. He has attempted detoxes in other programs but without success. He again relapsed and is using 1.5 bundle of heroin daily, intranasally, last used 6 AM today. He did overdosed 3 years ago. PMHX: denies. Psych: denies. Denies SI/HI or hx of suicide attempt. He is also using $20 of cocaine daily, last used 6 AM today. He smokes sporadically marijuana, last used 2 days ago. He smokes ciggarettes 10 per day, since 18 years old. Patient is currently homeless but not in senior care system. Patient denies any legal issues pending. 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 Loss EENT: reports: No Symptoms Reported Respiratory: reports: No Symptoms reported Cardiac: reports: No Symptoms Reported GI: reports: Nausea : reports: No Symptoms Reported Musculoskeletal: reports: No Symptoms Reported Integumentary: reports: No Symptoms Reported Neuro: reports: Headache Endocrine: reports: No Symptoms Reported Hematology: reports: No Symptoms Reported Psychiatric: reports: Judgement Intact, Orientated x3, Anxious Patient History - Patient Medical History Hx Anemia: No Hx Asthma: No Hx Chronic Obstructive Pulmonary Disease (COPD): No Hx Cancer: No Hx Cardiac Disorders: No Hx Congestive Heart Failure: No Hx Hypertension: No Hx Hypercholesterolemia: No Hx Pacemaker: No HX Cerebrovascular Accident: No Hx Seizures: No Hx Dementia: No Hx Diabetes: No Hx Gastrointestinal Disorders: No Hx Liver Disease: No Hx Genitourinary Disorders: No Hx Sexually Transmitted Disorders: No Hx Renal Disease (ESRD): No Hx Thyroid Disease: No Hx Human Immunodeficiency Virus (HIV): No Hx Hepatitis C: No Hx Depression: No Hx Suicide Attempt: No Hx Bipolar Disorder: No Hx Schizophrenia: No - Patient Surgical History Past Surgical History: No Hx Neurologic Surgery: No Hx Cataract Extraction: No Hx Cardiac Surgery: No Hx Lung Surgery: No Hx Breast Surgery: No Hx Breast Biopsy: No Hx Abdominal Surgery: No Hx Appendectomy: No Hx Cholecystectomy: No Hx Genitourinary Surgery: No Hx Section: No Hx Orthopedic Surgery: No Anesthesia Reaction: No - PPD History Previous Implant?: Yes Documented Results: Negative w/o proof Date: 09/07/18 Results: 0mm PPD to be Administered?: No - Smoking Cessation Smoking history: Current every day smoker Have you smoked in the past 12 months: Yes Aproximately how many cigarettes per day: 20 Cigars Per Day: 0 Hx Chewing Tobacco Use: No Initiated information on smoking cessation: Yes 'Breaking Loose' booklet given: 10/25/19 - Substances abused Cocaine Substance route: Smoking Frequency: Daily Amount used: $20 Age of first use: 15 Date of last use: 10/25/19 Heroin Substance route: Inhalation Frequency: Daily Amount used: 15 abgs Age of first use: 29 Date of last use: 10/25/19 Admission Physical Exam [facility] - Physical General Appearance: Yes: Mild Distress, Irritable, Sweating, Anxious HEENTM: Yes: EOMI, Hearing grossly Normal, Normal ENT Inspection, Normocephalic , Normal Voice, BREANNA, Pharynx Normal, Tm's normal Respiratory: Yes: Chest Non-Tender, Lungs Clear, Normal Breath Sounds, No Respiratory Distress, No Accessory Muscle Use Neck: Yes: No masses,lesions,Nodules, Supple, Trachea in good position Breast: Yes: Within Normal Limits Cardiology: Yes: Regular Rhythm, Regular Rate, S1, S2 Abdominal: Yes: Normal Bowel Sounds, Non Tender, Flat, Soft Genitourinary: Yes: Within Normal Limits Back: Yes: Normal Inspection Musculoskeletal: Yes: full range of Motion, Gait Steady, Pelvis Stable Extremities: Yes: Normal Capillary Refill, Normal Inspection, Normal Range of Motion, Non-Tender Neurological: Yes: piercing artist II-XII NML intact, Fully Oriented, Alert, Motor Strength 5/5, Normal Mood/Affect, Normal Response Integumentary: Yes: Normal Color, Warm Lymphatic: Yes: Within Normal Limits - Diagnostic (1) Cocaine use disorder Current Visit: Yes Status: Acute (2) Friction blister of the foot Current Visit: Yes Status: Acute Qualifiers: Encounter type: subsequent encounter Laterality: unspecified laterality Qualified Code(s): S90.829D - Blister (nonthermal), unspecified foot, subsequent encounter (3) Opioid dependence with withdrawal Current Visit: Yes Status: Acute (4) Tobacco use disorder Current Visit: Yes Status: Acute (5) Homeless Current Visit: Yes Status: Suspected Screened but not Admitted - Documentation of Visit Screened but not Admitted: No Breathalyzer - Breathalyzer Breathalyzer: 0 Urine Drug Screen - Test Device Lot number: [id number] Expiration date: 04/25/21 - Control Is test valid?: Yes - Results Drug screen NEGATIVE: No Urine drug screen results: THC-Marijuana, LAN-Cocaine, FEN-Fentanyl, MOP-Opiates Inpatient Rehab Admission - Rehab Decision to Admit Inpatient rehab admission?: No
[2019-10-25 13:00] VITALS: BMI 24.3
[2019-10-25] MEDS ORDERED: BISMUTH SUBSALICYLATE 262 MG/15 ML BTL PO PRN (13:33)
[2019-10-25] MEDS ORDERED: MAG HYDROX/AL HYDROX/SIMETH 30 ML UNIT-DOSE CUP PO PRN (13:33)
[2019-10-25] MEDS ORDERED: ACETAMINOPHEN 325 MG TABLET (FP) PO PRN ×2 (13:33)
[2019-10-25] MEDS ORDERED: MAGNESIUM CITRATE 300 ML BOTTLE PO PRN (13:33)
[2019-10-25] MEDS ORDERED: cloNIDine HCL 0.1 MG TABLET PO PRN (13:33)
[2019-10-25] MEDS ORDERED: MAGNESIUM HYDROX 2400MG/30ML ORAL SUSPENSION 30 ML CUP PO PRN (13:33)
[2019-10-25] MEDS ORDERED: MENTHOL/PHENOL 1 EACH UD MM PRN (13:33)
[2019-10-25] MEDS ORDERED: MELATONIN 5 MG TABLETS PO PRN (13:33)
[2019-10-25] MEDS ORDERED: IBUPROFEN 400 MG TABLET (FP) PO PRN (13:33)
[2019-10-25] MEDS ORDERED: METHADONE HCL 10 MG TABLET (FOR DETOX USE ONLY) PO ONE (14:10)
[2019-10-25] MEDS: NICOTINE 14 MG/24 HOURS TOPICAL PATCH TD SCH (14:28)
[2019-10-25] MEDS: BACITRACIN 0.9 GM PACKET TP SCH ×2 (14:28→22:33)
[2019-10-25 16:42] LABS: HEMATOCRIT 38.6 % (35.4-49); HEMOGLOBIN 12.7 GM/dL (11.7-16.9); MCH 26.6 pg (25.7-33.7); MCHC 32.8 g/dl (32.0-35.9); MEAN CELL VOLUME 81.2 fl (80-96); MEAN PLT VOLUME 7.9 fl (7.5-11.1); PLATELET COUNT 358 K/MM3 (134-434); RBC 4.75 M/mm3 (4.00-5.60); RDW 14.7 % (11.9-15.9); WHITE BLOOD COUNT 5.6 K/mm3 (4.0-10.0)
[2019-10-25 17:06] LABS: ALBUMIN 3.6 g/dl (3.4-5.0); BILIRUBIN,TOTAL 0.2 mg/dL (0.2-1); BLOOD UREA NITROGEN 11.7 mg/dL (7-18); CALCIUM 8.9 mg/dL (8.5-10.1); CREATININE 0.9 mg/dL (0.55-1.3); POTASSIUM 4.1 mmol/L (3.5-5.1); TOT PROT 6.6 g/dl (6.4-8.2)
[2019-10-25] MEDS: THIAMINE HCL 100 MG TABLET (FP) PO SCH (22:33)
[2019-10-26] MEDS ORDERED: METHADONE HCL 10 MG TABLET (FOR DETOX USE ONLY) ONE (09:06)
[2019-10-26] MEDS ORDERED: METHADONE HCL 5 MG TABLET (FOR DETOX USE ONLY) ONE (09:08)
[2019-10-26] MEDS ORDERED: METHADONE (DETOX) 20 MG, METHADONE (DETOX) 5 MG PO ONE (10:00)
[2019-10-26] MEDS: PRENATAL VITAMINS W/ FOLIC ACID TABLET (FP) PO SCH (10:16)
[2019-10-26] MEDS: NICOTINE 14 MG/24 HOURS TOPICAL PATCH TD SCH (10:18)
[2019-10-26] MEDS: BACITRACIN 0.9 GM PACKET TP SCH ×2 (10:18→22:19)
--- NOTE | 2019-10-26 10:52 | PN ---
[facility] COWS - Scale Resting Pulse: 0= [place] 80 or Below Sweatin= Chills/Flushing Restless Observation: 0= Sits Still Pupil Size: 1= Pupils >than Normal Bone or Joint Aches: 1= Mild Discomfort Runny Nose/ Eye Tearin= None GI Upset > 30mins: 2= Nausea/Diarrhea Tremor Observation of Outstretched Hands: 1= Tremor [place], Not Seen Yawning Observation: 0= None Anxiety or Irritability: 2=Irritable/Anxious Goose Flesh Skin: 3=Piloerection COWS Score: 11 [facility] Progress Note (SOAP) Subjective: 33 years old male admitted on 10/25/19 for opiate withdrawal sx management treating with methadone detox regiment feeling ok today discussed medication assisted treatment program and [employer] narcan from the pharmacy that it is live saving medication Objective: 10/26/19 10:53 Vital Signs Temperature 97.7 F 10/26/19 08:50 Pulse Rate 67 10/26/19 08:50 Respiratory Rate 18 10/26/19 08:50 Blood Pressure 139/85 10/26/19 08:50 O2 Sat by Pulse Oximetry (%) Laboratory Last Values WBC 5.6 K/mm3 (4.0-10.0) 10/25/19 13:40 RBC 4.75 M/mm3 (4.00-5.60) 10/25/19 13:40 Hgb 12.7 GM/dL (11.7-16.9) 10/25/19 13:40 Hct 38.6 % (35.4-49) 10/25/19 13:40 MCV 81.2 fl (80-96) 10/25/19 13:40 MCH 26.6 pg (25.7-33.7) 10/25/19 13:40 MCHC 32.8 g/dl (32.0-35.9) 10/25/19 13:40 RDW 14.7 % (11.9-15.9) 10/25/19 13:40 Plt Count 358 K/MM3 (134-434) D 10/25/19 13:40 MPV 7.9 fl (7.5-11.1) 10/25/19 13:40 Sodium 139 mmol/L (136-145) 10/25/19 13:40 Potassium 4.1 mmol/L (3.5-5.1) 10/25/19 13:40 Chloride 105 mmol/L (98-107) 10/25/19 13:40 Carbon Dioxide 27 mmol/L (21-32) 10/25/19 13:40 Anion Gap 7 MMOL/L (8-16) L 10/25/19 13:40 BUN 11.7 mg/dL (7-18) 10/25/19 13:40 Creatinine 0.9 mg/dL (0.55-1.3) 10/25/19 13:40 Est GFR (CKD-EPI)AfAm 128.70 10/25/19 13:40 Est GFR (CKD-EPI)NonAf 111.04 10/25/19 13:40 Random Glucose 114 mg/dL (74-106) H 10/25/19 13:40 Calcium 8.9 mg/dL (8.5-10.1) 10/25/19 13:40 Total Bilirubin 0.2 mg/dL (0.2-1) 10/25/19 13:40 AST 32 U/L (15-37) 10/25/19 13:40 ALT 27 U/L (13-61) 10/25/19 13:40 Alkaline Phosphatase 134 U/L (45-117) H 10/25/19 13:40 Total Protein 6.6 g/dl (6.4-8.2) 10/25/19 13:40 Albumin 3.6 g/dl (3.4-5.0) 10/25/19 13:40 RPR Titer Nonreactive (NONREACTIVE) 10/25/19 13:40 lab noted Assessment: 10/26/19 10:54 opiate withdrawal Plan: methadone regiment
[2019-10-26] MEDS: THIAMINE HCL 100 MG TABLET (FP) PO SCH (22:19)
[2019-10-27] MEDS ORDERED: METHADONE HCL 10 MG TABLET (FOR DETOX USE ONLY) PO ONE (10:00)
[2019-10-27] MEDS: PRENATAL VITAMINS W/ FOLIC ACID TABLET (FP) PO SCH (10:09)
[2019-10-27] MEDS: BACITRACIN 0.9 GM PACKET TP SCH ×2 (10:10→23:04)
[2019-10-27] MEDS: NICOTINE 14 MG/24 HOURS TOPICAL PATCH TD SCH (10:10)
--- NOTE | 2019-10-27 11:34 | PN ---
BHS COWS - Scale Resting Pulse: 0= [place] 80 or Below Sweatin= Chills/Flushing Restless Observation: 1= Difficult to Sit Still Pupil Size: 5= Only [place] Seen Bone or Joint Aches: 1= Mild Discomfort Runny Nose/ Eye Tearin= Nasal Congestion GI Upset > 30mins: 0= None Tremor Observation of Outstretched Hands: 0= None Yawning Observation: 0= None Anxiety or Irritability: 1=Feels Anxious/Irritable Goose Flesh Skin: 0=Smooth Skin COWS Score: 10 [facility] Progress Note (SOAP) Subjective: Patient seen in bed with minimal complaints. Objective: 10/27/19 11:31 Vitals: BP: 117/67 P: 62 R:18 T: 97.4 Laboratory 10/25/19 10/25/19 10/25/19 13:40 13:40 13:40 WBC 5.6 K/mm3 K/mm3 (4.0-10.0) RBC 4.75 M/mm3 M/mm3 (4.00-5.60) Hgb 12.7 GM/dL GM/dL (11.7-16.9) Hct 38.6 % % (35.4-49) MCV 81.2 fl fl (80-96) MCH 26.6 pg pg (25.7-33.7) MCHC 32.8 g/dl g/dl (32.0-35.9) RDW 14.7 % % (11.9-15.9) Plt Count 358 K/MM3 D K/MM3 (134-434) MPV 7.9 fl fl (7.5-11.1) Sodium 139 mmol/L mmol/L (136-145) Potassium 4.1 mmol/L mmol/L (3.5-5.1) Chloride 105 mmol/L mmol/L (98-107) Carbon Dioxide 27 mmol/L mmol/L (21-32) Anion Gap 7 MMOL/L L MMOL/L (8-16) BUN 11.7 mg/dL mg/dL (7-18) Creatinine 0.9 mg/dL mg/dL (0.55-1.3) Est GFR (CKD-EPI)AfAm 128.70 Est GFR (CKD-EPI)NonAf 111.04 Random Glucose 114 mg/dL H mg/dL (74-106) Calcium 8.9 mg/dL mg/dL (8.5-10.1) Total Bilirubin 0.2 mg/dL mg/dL (0.2-1) AST 32 U/L U/L (15-37) ALT 27 U/L U/L (13-61) Alkaline Phosphatase 134 U/L H U/L (45-117) Total Protein 6.6 g/dl g/dl (6.4-8.2) Albumin 3.6 g/dl g/dl (3.4-5.0) RPR Titer Nonreactive (NONREACTIVE) Assessment: 10/27/19 11:32 1. Opioid Dependence 2. Noted abnormal labs: Low AG=7, Glucose 114, Alk 134 Plan: 1. Continue methadone detox protocol 2. abnormalities not significant. Non-fasting glucose. Alk can be elevated due to lysis of cells and AG low can be due to dehydration with vomitting. Continue medical management. Dr. Francis
[2019-10-27] MEDS: THIAMINE HCL 100 MG TABLET (FP) PO SCH (23:04)
[2019-10-28] MEDS ORDERED: METHADONE HCL 10 MG TABLET (FOR DETOX USE ONLY) ONE (09:11)
[2019-10-28] MEDS ORDERED: METHADONE HCL 5 MG TABLET (FOR DETOX USE ONLY) ONE (09:13)
[2019-10-28] MEDS ORDERED: METHADONE (DETOX) 10 MG, METHADONE (DETOX) 5 MG PO ONE (10:00)
[2019-10-28] MEDS: NICOTINE 14 MG/24 HOURS TOPICAL PATCH TD SCH (10:17)
[2019-10-28] MEDS: PRENATAL VITAMINS W/ FOLIC ACID TABLET (FP) PO SCH (10:17)
[2019-10-28] MEDS: BACITRACIN 0.9 GM PACKET TP SCH ×2 (10:18→22:08)
--- NOTE | 2019-10-28 12:31 | PN ---
BHS COWS - Scale Resting Pulse: 0= [place] 80 or Below Sweatin= Chills/Flushing Restless Observation: 1= Difficult to Sit Still Pupil Size: 0= Normal to Room Light Bone or Joint Aches: 1= Mild Discomfort Runny Nose/ Eye Tearin= None GI Upset > 30mins: 1= Stomach Cramp Tremor Observation of Outstretched Hands: 2= Slight Tremor Visible Yawning Observation: 1= 1-2x During Session Anxiety or Irritability: 2=Irritable/Anxious Goose Flesh Skin: 0=Smooth Skin COWS Score: 9 [facility] Progress Note (SOAP) Subjective: c/o anxiety, irritability, chills, and muscle aches. Objective: 10/28/19 12:30 Vital Signs 10/28/19 10/28/19 06:50 08:34 Temperature 97.4 F L 97.3 F L Pulse Rate 50 L 54 L Respiratory 16 19 Rate Blood Pressure 121/72 118/77 Laboratory Last Values WBC 5.6 K/mm3 (4.0-10.0) 10/25/19 13:40 RBC 4.75 M/mm3 (4.00-5.60) 10/25/19 13:40 Hgb 12.7 GM/dL (11.7-16.9) 10/25/19 13:40 Hct 38.6 % (35.4-49) 10/25/19 13:40 MCV 81.2 fl (80-96) 10/25/19 13:40 MCH 26.6 pg (25.7-33.7) 10/25/19 13:40 MCHC 32.8 g/dl (32.0-35.9) 10/25/19 13:40 RDW 14.7 % (11.9-15.9) 10/25/19 13:40 Plt Count 358 K/MM3 (134-434) D 10/25/19 13:40 MPV 7.9 fl (7.5-11.1) 10/25/19 13:40 Sodium 139 mmol/L (136-145) 10/25/19 13:40 Potassium 4.1 mmol/L (3.5-5.1) 10/25/19 13:40 Chloride 105 mmol/L (98-107) 10/25/19 13:40 Carbon Dioxide 27 mmol/L (21-32) 10/25/19 13:40 Anion Gap 7 MMOL/L (8-16) L 10/25/19 13:40 BUN 11.7 mg/dL (7-18) 10/25/19 13:40 Creatinine 0.9 mg/dL (0.55-1.3) 10/25/19 13:40 Est GFR (CKD-EPI)AfAm 128.70 10/25/19 13:40 Est GFR (CKD-EPI)NonAf 111.04 10/25/19 13:40 Random Glucose 114 mg/dL (74-106) H 10/25/19 13:40 Calcium 8.9 mg/dL (8.5-10.1) 10/25/19 13:40 Total Bilirubin 0.2 mg/dL (0.2-1) 10/25/19 13:40 AST 32 U/L (15-37) 10/25/19 13:40 ALT 27 U/L (13-61) 10/25/19 13:40 Alkaline Phosphatase 134 U/L (45-117) H 10/25/19 13:40 Total Protein 6.6 g/dl (6.4-8.2) 10/25/19 13:40 Albumin 3.6 g/dl (3.4-5.0) 10/25/19 13:40 RPR Titer Nonreactive (NONREACTIVE) 10/25/19 13:40 Labs noted. Assessment: 10/28/19 12:31 AOX3, in no acute respiratory distress. Full ROM, ambulating in the unit. Withdrawal symptoms. Plan: continue detox.
[2019-10-28] MEDS: THIAMINE HCL 100 MG TABLET (FP) PO SCH (22:08)
[2019-10-29] MEDS: hydrOXYzine PAMOATE 25 MG CAPSULE (FP) PO PRN (02:27)
[2019-10-29] MEDS: METHOCARBAMOL 500 MG TABLET PO PRN (02:27)
[2019-10-29] MEDS ORDERED: METHADONE HCL 10 MG TABLET (FOR DETOX USE ONLY) PO ONE (10:00)
[2019-10-29] MEDS: BACITRACIN 0.9 GM PACKET TP SCH ×2 (10:10→22:11)
[2019-10-29] MEDS: NICOTINE 14 MG/24 HOURS TOPICAL PATCH TD SCH (10:10)
[2019-10-29] MEDS: PRENATAL VITAMINS W/ FOLIC ACID TABLET (FP) PO SCH (10:10)
--- NOTE | 2019-10-29 11:23 | PN ---
BHS COWS - Scale Resting Pulse: 0= [place] 80 or Below Sweatin= Chills/Flushing Restless Observation: 0= Sits Still Pupil Size: 0= Normal to Room Light Bone or Joint Aches: 1= Mild Discomfort Runny Nose/ Eye Tearin= Nasal Congestion GI Upset > 30mins: 1= Stomach Cramp Tremor Observation of Outstretched Hands: 1= Tremor [place], Not Seen Yawning Observation: 0= None Anxiety or Irritability: 1=Feels Anxious/Irritable Goose Flesh Skin: 0=Smooth Skin COWS Score: 6 [facility] Progress Note (SOAP) Subjective: 33 years old male admitted on 10/25/19 for opiate withdrawal sx management treating with methadone detox regiment feeling better today less tremor slept through the night Objective: 10/29/19 11:22 Vital Signs Temperature 96.7 F L 10/29/19 08:46 Pulse Rate 53 L 10/29/19 08:46 Respiratory Rate 16 10/29/19 08:46 Blood Pressure 114/64 10/29/19 08:46 O2 Sat by Pulse Oximetry (%) Laboratory Last Values WBC 5.6 K/mm3 (4.0-10.0) 10/25/19 13:40 RBC 4.75 M/mm3 (4.00-5.60) 10/25/19 13:40 Hgb 12.7 GM/dL (11.7-16.9) 10/25/19 13:40 Hct 38.6 % (35.4-49) 10/25/19 13:40 MCV 81.2 fl (80-96) 10/25/19 13:40 MCH 26.6 pg (25.7-33.7) 10/25/19 13:40 MCHC 32.8 g/dl (32.0-35.9) 10/25/19 13:40 RDW 14.7 % (11.9-15.9) 10/25/19 13:40 Plt Count 358 K/MM3 (134-434) D 10/25/19 13:40 MPV 7.9 fl (7.5-11.1) 10/25/19 13:40 Sodium 139 mmol/L (136-145) 10/25/19 13:40 Potassium 4.1 mmol/L (3.5-5.1) 10/25/19 13:40 Chloride 105 mmol/L (98-107) 10/25/19 13:40 Carbon Dioxide 27 mmol/L (21-32) 10/25/19 13:40 Anion Gap 7 MMOL/L (8-16) L 10/25/19 13:40 BUN 11.7 mg/dL (7-18) 10/25/19 13:40 Creatinine 0.9 mg/dL (0.55-1.3) 10/25/19 13:40 Est GFR (CKD-EPI)AfAm 128.70 10/25/19 13:40 Est GFR (CKD-EPI)NonAf 111.04 10/25/19 13:40 Random Glucose 114 mg/dL (74-106) H 10/25/19 13:40 Calcium 8.9 mg/dL (8.5-10.1) 10/25/19 13:40 Total Bilirubin 0.2 mg/dL (0.2-1) 10/25/19 13:40 AST 32 U/L (15-37) 10/25/19 13:40 ALT 27 U/L (13-61) 10/25/19 13:40 Alkaline Phosphatase 134 U/L (45-117) H 10/25/19 13:40 Total Protein 6.6 g/dl (6.4-8.2) 10/25/19 13:40 Albumin 3.6 g/dl (3.4-5.0) 10/25/19 13:40 RPR Titer Nonreactive (NONREACTIVE) 10/25/19 13:40 lab noted Assessment: 10/29/19 11:22 opiate withdrawal Plan: methadone regiment
[2019-10-29] MEDS: THIAMINE HCL 100 MG TABLET (FP) PO SCH (22:12)
[2019-10-30] MEDS: hydrOXYzine PAMOATE 25 MG CAPSULE (FP) PO PRN (00:50)
[2019-10-30] MEDS: METHOCARBAMOL 500 MG TABLET PO PRN (00:50)
[2019-10-30] MEDS ORDERED: METHADONE HCL 5 MG TABLET (FOR DETOX USE ONLY) PO ONE (06:00)
[2019-10-30] MEDS: NICOTINE 14 MG/24 HOURS TOPICAL PATCH TD SCH (12:34)
[2019-10-30] MEDS: BACITRACIN 0.9 GM PACKET TP SCH (12:34)
[2019-10-30] MEDS: PRENATAL VITAMINS W/ FOLIC ACID TABLET (FP) PO SCH (12:35)
--- NOTE | 2019-10-30 12:48 | DS ---
[facility] Detox Discharge Summary Admission Date: 10/25/19 Discharge Date: 10/30/19 - History Present History: Opioid Dependence Additional Comments: 33 years old male admitted on 10/25/19 for opiate withdrawal sx management treated with methadone detox regiment patient has completed the methadone regiment and tolerated well alert oriented x 3 respiratory clear lungs bilaterally on auscultation abdomen soft no rebound tenderness skin warm and dry - Physical Exam Results Vital Signs: Vital Signs Temperature 97.8 F 10/30/19 08:32 Pulse Rate 53 L 10/30/19 08:32 Respiratory Rate 18 10/30/19 08:32 Blood Pressure 108/62 10/30/19 08:32 O2 Sat by Pulse Oximetry (%) Pertinent Admission Physical Exam Findings: opiate withdrawal Laboratory Last Values WBC 5.6 K/mm3 (4.0-10.0) 10/25/19 13:40 RBC 4.75 M/mm3 (4.00-5.60) 10/25/19 13:40 Hgb 12.7 GM/dL (11.7-16.9) 10/25/19 13:40 Hct 38.6 % (35.4-49) 10/25/19 13:40 MCV 81.2 fl (80-96) 10/25/19 13:40 MCH 26.6 pg (25.7-33.7) 10/25/19 13:40 MCHC 32.8 g/dl (32.0-35.9) 10/25/19 13:40 RDW 14.7 % (11.9-15.9) 10/25/19 13:40 Plt Count 358 K/MM3 (134-434) D 10/25/19 13:40 MPV 7.9 fl (7.5-11.1) 10/25/19 13:40 Sodium 139 mmol/L (136-145) 10/25/19 13:40 Potassium 4.1 mmol/L (3.5-5.1) 10/25/19 13:40 Chloride 105 mmol/L (98-107) 10/25/19 13:40 Carbon Dioxide 27 mmol/L (21-32) 10/25/19 13:40 Anion Gap 7 MMOL/L (8-16) L 10/25/19 13:40 BUN 11.7 mg/dL (7-18) 10/25/19 13:40 Creatinine 0.9 mg/dL (0.55-1.3) 10/25/19 13:40 Est GFR (CKD-EPI)AfAm 128.70 10/25/19 13:40 Est GFR (CKD-EPI)NonAf 111.04 10/25/19 13:40 Random Glucose 114 mg/dL (74-106) H 10/25/19 13:40 Calcium 8.9 mg/dL (8.5-10.1) 10/25/19 13:40 Total Bilirubin 0.2 mg/dL (0.2-1) 10/25/19 13:40 AST 32 U/L (15-37) 10/25/19 13:40 ALT 27 U/L (13-61) 10/25/19 13:40 Alkaline Phosphatase 134 U/L (45-117) H 10/25/19 13:40 Total Protein 6.6 g/dl (6.4-8.2) 10/25/19 13:40 Albumin 3.6 g/dl (3.4-5.0) 10/25/19 13:40 RPR Titer Nonreactive (NONREACTIVE) 10/25/19 13:40 lab noted - Treatment Hospital Course: Detox Protocol Followed, Detoxed Safely, Responded well, Discharged Condition Good, Rehab Referral Accepted Patient has Accept[facility] - Medication Discharge Medications: Ambulatory Orders Naloxone HCl [Narcan] 4 mg NS ASDIR PRN #1 spray 10/26/19 - Diagnosis (1) Opioid dependence with withdrawal Current Visit: Yes Status: Acute (2) Substance induced mood disorder Current Visit: Yes Status: Suspected - AMA Did Patient Leave Against Medical Advice: No COWS (PN) - Opiate Withdrawal Resting Pulse: 0= [place] 80 or Below Sweatin= No chills or Flushing Restless Observation: 0= Sits Still Pupil Size: 0= Normal to Room Light Bone or Joint Aches: 1= Mild Discomfort Runny Nose/ Eye Tearin= None GI Upset > 30mins: 0= None Tremor Observation of Outstretched Hands: 0= None Yawning Observation: 0= None Anxiety or Irritability: 1=Feels Anxious/Irritable Goose Flesh Skin: 0=Smooth Skin COWS Score: 2
[2019-10-30 13:15] VITALS: BP 114/60; PULSE 58; TEMP 96.7
== END 2019-10-30 13:54 | disposition other institution (70) | DRG 773 ==
LOC: YASAS 12:15 → Y3N 13:59
PROVIDERS: ADMIT Allergy & Immunology; ATTEND Allergy & Immunology
PROC: HZ2ZZZZ Detoxification Services for Substance Abuse Treatment (ICD-10-PCS; principal; 2019-10-25)
DX: F11.23 Opioid dependence with withdrawal (principal); F14.20 Cocaine dependence, uncomplicated; F12.10 Cannabis abuse, uncomplicated; F17.210 Nicotine dependence, cigarettes, uncomplicated; F19.24 Other psychoactive substance dependence with psychoactive substance-induced mood disorder; S90.829D Blister (nonthermal), unspecified foot, subsequent encounter; Z59.0 Homelessness; X58.XXXD Exposure to other specified factors, subsequent encounter
CPT/HCPCS: 36415; 80053; 85027; 86593

== ENCOUNTER 2019-10-30 14:01 | Inpatient (IN) | payer OTHER ==
--- NOTE | 2019-10-30 12:49 | HP ---
[facility] Rehab Assess/Revision - Admission History Ad[facility] - Findings Detox History & Physical reviewed: Yes Concur with findings: Yes Comments/Additional Findings: transferred from detox to rehab admission as per protocol Inpatient Rehab Admission - Rehab Decision to Admit Inpatient rehab admission?: Yes - Initial Determination Are CD services needed?: Yes Free of communicable disease: Yes Not in need of hospitalization: Yes - Rehab Admission Criteria Previous failed treatment: Yes Poor recovery environment: Yes Comorbidities: Yes Lacks judgement: Yes Patient is meeting Inpatient Rehab admission criteria:: Yes
[~2019-10-30 14:01] MED LIST: ACETAMINOPHEN 325 MG TABLET (FP) PO PRN; BACITRACIN 0.9 GM PACKET TP PRN; IBUPROFEN 400 MG TABLET (FP) PO PRN; LOPERAMIDE HCL 2 MG CAPSULE PO PRN; MAG HYDROX/AL HYDROX/SIMETH 30 ML UNIT-DOSE CUP PO PRN; MAGNESIUM CITRATE 300 ML BOTTLE PO PRN; MAGNESIUM HYDROX 2400MG/30ML ORAL SUSPENSION 30 ML CUP PO PRN; MENTHOL/PHENOL 1 EACH UD MM PRN; NICOTINE POLACRILEX 2 MG GUM BUC PRN; P-EPHED 60MG/TRIPROLIDI 2.5MG TABLET PO PRN; guaiFENesin 200 MG/10 ML 10 ML UNIT-DOSE CUPS PO PRN
[2019-10-30] MEDS: THIAMINE HCL 100 MG TABLET (FP) PO SCH (21:32)
[2019-10-30] MEDS: MELATONIN 5 MG TABLETS PO PRN (21:32)
[2019-10-31] MEDS: NICOTINE 14 MG/24 HOURS TOPICAL PATCH TD SCH (10:52)
[2019-10-31] MEDS: PRENATAL VITAMINS W/ FOLIC ACID TABLET (FP) PO SCH (10:52)
[2019-10-31] MEDS ORDERED: ONDANSETRON *ODT* 4 MG TABLET SL PRN (11:44)
[2019-10-31] MEDS: hydrOXYzine PAMOATE 50 MG CAPSULE (FP) PO PRN ×2 (13:44→21:36)
[2019-10-31] MEDS: MELATONIN 5 MG TABLETS PO PRN (21:35)
[2019-10-31] MEDS: THIAMINE HCL 100 MG TABLET (FP) PO SCH (21:35)
[2019-11-01 07:39] VITALS: BP 131/81; PULSE 49; TEMP 97.1
[2019-11-01] MEDS: hydrOXYzine PAMOATE 50 MG CAPSULE (FP) PO PRN (10:45)
[2019-11-01] MEDS: NICOTINE 14 MG/24 HOURS TOPICAL PATCH TD SCH (10:45)
[2019-11-01] MEDS: PRENATAL VITAMINS W/ FOLIC ACID TABLET (FP) PO SCH (10:45)
[2019-11-01] MEDS ORDERED: hydrOXYzine PAMOATE 50 MG CAPSULE (FP) PO PRN (15:34)
--- NOTE | 2019-11-01 15:37 | PN ---
[facility] Progress Note Note: Pt is a 33 y/o male with a hx of NEIL admitted to rehab from [address] [place] [address] on 10/30. PMHx:Denies. Psych Hx:Denies. denies s/h/i. Pt reports he has legal problems in [place] but did not report at admission or to anyone here till now. Vital Signs - 24 hr 11/01/19 11/01/19 03:30 07:38 Temperature 97.1 F L Pulse Rate 49 L Respiratory 18 18 Rate Blood Pressure 131/81 Alert o x 3 nad oob ambulating with steady gait A/P NEIL new rehab pt Pt wants to sign himself out so he can return to [facility] to turn himself in. States he just got off the phone with someone and has to leave now. Pt instructed to follow up with his counselor for aftercare planning.
--- NOTE | 2019-11-01 16:32 | DS ---
[facility] Rehab Discharge Summary - [facility] Rehab Discharge Summary Admission Date: 10/30/19 Discharge Date: 11/01/19 - History Present History: Cocaine dependence, Opioid dependence Additional Comments: Pt is a 33 y/o male with a NEIL admitted to rehab after detox [facility] [address] Pt reports he has four open cases of legal problems in [place] and would prefer to go turn himself in instead of arrest in another state. pt reports he did not inform any staffon admission or in this facility until now. Pt met with his counselor Ms Tate Joshi and aftercare referral recommended to patient on leaving. Pertinent Past History: Denies PMHx and Psych Hx - Discharge Physical Exam Vital Signs: Vital Signs Temperature 97.1 F L 11/01/19 07:38 Pulse Rate 49 L 11/01/19 07:38 Respiratory Rate 18 11/01/19 07:38 Blood Pressure 131/81 11/01/19 07:38 O2 Sat by Pulse Oximetry (%) alert o x 3 nad oob ambulating with steady gait cardiac;s1 s2,rrr lungs:cta,elliot. abdomen:+bs,soft,nt,flat extremities/skin:no edema,skin intact. Pertinent Admission Physical Exam Findings: Unchanged status - Treatment Discharge Condition: Discharge condition good Hospital Course: Pt admitted on 10/30/19 Declined to continue treatment on 11/01/19 - Medication Discharge Medications: Ambulatory Orders NK [No Known Home Medication] 10/30/19 - Medication-Assisted Treatment (MAT) Medication-Assisted Treatment (MAT): No - Discharge Instructions Diet, activity, other medical instructions: Diet:regular Activity: oob ad brian Other medical instructions:follow up with CD aftercare recommendations. follow up with primary care as needed. - Diagnosis (1) Cocaine use disorder Current Visit: Yes Status: Chronic (2) Opioid use disorder Current Visit: Yes Status: Chronic (3) Tobacco use disorder Current Visit: Yes Status: Chronic - Follow-up Referral Minutes to complete discharge: 30 - AMA Did Patient Leave Against Medical Advice: Yes
== END 2019-11-01 16:15 | disposition left against medical advice (07) | DRG 770 ==
LOC: YASAS 14:01 → Y5N 14:02
PROVIDERS: ADMIT Allergy & Immunology; ATTEND Allergy & Immunology
PROC: HZ42ZZZ Group Counseling for Substance Abuse Treatment, Cognitive-Behavioral (ICD-10-PCS; principal; 2019-10-30)
DX: F11.20 Opioid dependence, uncomplicated (principal); F14.20 Cocaine dependence, uncomplicated; F17.210 Nicotine dependence, cigarettes, uncomplicated
CPT/HCPCS: 36415; 87389

== ENCOUNTER 2020-05-23 11:29 | Inpatient (IN) | payer OTHER ==
--- NOTE | 2020-05-23 11:55 | BHS.RME ---
Substance Use & Tx History - Substance Use History Heroin Substance amount: 2 bundles Frequency of use: Daily Substance route: Injection (ex: intravenous or skin popping) Date of Last Use: 05/23/20 Cocaine-Crack Substance amount: 1/2-1 gram Frequency of use: Daily Substance route: Smoking Date of Last Use: 05/22/20 Nicotine Substance amount: 1/2 pack Frequency of use: Daily (1/2 pac) Substance route: Smoking Date of Last Use: 05/23/20 - Last Treatment Date of last treatment: Where was last treatment: Detox Physical/Psych/Mental Status - Behavior General Behavior: Increased activity (restlessness, agitation) Eye Contact: Normal - Cooperativeness Cooperativeness: Cooperative - Thinking Thought Processes: Tight, Logical, Goal Directed - Physical Health Problems Is patient presently having any pain?: No Does patient presently have any injuries (include location): No Does patient currently have a fever: No Is patient : No COWS - Scale Resting Pulse: 1= [place] 81-100 Sweatin= Chills/Flushing Restless Observation: 1= Difficult to Sit Still Pupil Size: 1= Pupils >than Normal Bone or Joint Aches: 2= Severe Diffuse Aches Runny Nose/ Eye Tearin= Nasal Congestion GI Upset > 30mins: 1= Stomach Cramp Tremor Observation: 1= Tremor [place], Not Seen Yawning Observation: 0= None Anxiety or Irritability: 0= None Goose Flesh Skin: 0=Smooth Skin (not yet in full withdrawals due to use this morning at 6AM) COWS Score: 9
--- NOTE | 2020-05-23 13:04 | HP ---
COWS - Scale Resting Pulse: 1= [place] 81-100 Sweatin= Chills/Flushing Restless Observation: 1= Difficult to Sit Still Pupil Size: 1= Pupils >than Normal Bone or Joint Aches: 2= Severe Diffuse Aches Runny Nose/ Eye Tearin= Nasal Congestion GI Upset > 30mins: 1= Stomach Cramp Tremor Observation: 1= Tremor [place], Not Seen Yawning Observation: 0= None Anxiety or Irritability: 0= None Goose Flesh Skin: 0=Smooth Skin (not yet in full withdrawals due to use this morning at 6AM) COWS Score: 9 CIWA Score - Admission Criteria OASAS Guidelines: Admission for Medically Managed Detox: Requires at least one of the followin. CIWA greater than 12 2. Seizures within the past 24 hours 3. Delirium tremens within the past 24 hours 4. Hallucinations within the past 24 hours 5. Acute intervention needed for co occurring medical disorder 6. Acute intervention needed for co occurring psychiatric disorder 7. Severe withdrawal that cannot be handled at a lower level of care (continued vomiting, continued diarrhea, abnormal vital signs) requiring intravenous medication and/or fluids 8. Admitting History and Physical - Admission Chief Complaint: Detox History of Present Illness: Patient is a 34 y.o. M presenting to [facility] for detox. Patient was examined in the room and is in no acute distress. Patient substance use consists of heroin 2 bundles a day endorses 1 overdose a few years ago and crack 1/2 to 2 gram a day. Patient states he has either Hypo or Hyperthyroidism but cannot remember which. 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 Cardiovascular: No: HTN, Hyperlipdemia Pulmonary: No: Pneumonia Gastrointestinal: No: Constipation, Pancreatitis Hepatobiliary: No: Hepatitis A, Hepatitis B, Hepatitis C Psych: Yes: Addictions (Heroin, crack) - Past Surgical History Past Surgical History: Yes: None - Smoking History Smoking history: Current every day smoker Have you smoked in the past 12 months: Yes Aproximately how many cigarettes per day: 10 - Alcohol/Substance Use Hx Alcohol Use: No History of Substance Use: reports: Cocaine, Heroin, Marijuana - Social History ADL: Independent 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, 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 History of Recent Travel: No Admission ROS [facility] - HPI Allergies/Adverse Reactions: Allergies Allergy/AdvReac Type Severity Reaction Status Date / Time No Known Allergies Allergy Verified 05/23/20 12:36 - Ebola screening Have you traveled outside of the country in the last 21 days: No Have you had contact with anyone from an Ebola affected area: No Have you been sick,other than usual withdrawal symptoms: No Do you have a fever: No - Review of Systems EENT: denies: Blurred Vision, Double Vision Respiratory: denies: Cough, Shortness of Breath Cardiac: denies: Chest Pain, Lightheadedness GI: denies: Constipated, Diarrhea, Nausea, Vomiting Musculoskeletal: reports: Muscle Weakness Psychiatric: reports: Mood/Affect Appropiate, Orientated x3 Patient History - Patient Medical History Hx Anemia: No Hx Asthma: No Hx Chronic Obstructive Pulmonary Disease (COPD): No Hx Cancer: No Hx Cardiac Disorders: No Hx Congestive Heart Failure: No Hx Hypertension: No Hx Hypercholesterolemia: No Hx Pacemaker: No HX Cerebrovascular Accident: No Hx Seizures: No Hx Dementia: No Hx Diabetes: No Hx Gastrointestinal Disorders: No Hx Liver Disease: No Hx Genitourinary Disorders: No Hx Sexually Transmitted Disorders: No Hx Renal Disease (ESRD): No Hx Thyroid Disease: No Hx Human Immunodeficiency Virus (HIV): No Hx Hepatitis C: No Hx Depression: Yes Hx Suicide Attempt: No Hx Bipolar Disorder: No Hx Schizophrenia: No - Patient Surgical History Past Surgical History: No Hx Neurologic Surgery: No Hx Cataract Extraction: No Hx Cardiac Surgery: No Hx Lung Surgery: No Hx Breast Surgery: No Hx Breast Biopsy: No Hx Abdominal Surgery: No Hx Appendectomy: No Hx Cholecystectomy: No Hx Genitourinary Surgery: No Hx Section: No Hx Orthopedic Surgery: No Anesthesia Reaction: No - PPD History Previous Implant?: Yes Documented Results: Negative w/o proof [facility] Yes Date: 09/07/18 Results: 0mm - Reproductive History Patient : (n/a) - Smoking Cessation Smoking history: Current every day smoker Have you smoked in the past 12 months: Yes Aproximately how many cigarettes per day: 10 Cigars Per Day: 0 Hx Chewing Tobacco Use: Yes Initiated information on smoking cessation: Yes 'Breaking Loose' booklet given: 05/23/20 - Substances abused Cocaine Substance route: Smoking Frequency: Daily Amount used: 1 gram Age of first use: 28 Date of last use: 05/23/20 Heroin Substance route: Injection Frequency: Daily Amount used: 20bags Age of first use: 19 Date of last use: 05/23/20 Admission Physical Exam [facility] - Vital Signs Vital Signs: Vital Signs - 24 hr 05/23/20 12:36 Temperature 98.5 F Pulse Rate 79 Respiratory 18 Rate Blood Pressure 113/66 - Physical General Appearance: Yes: Within Normal Limits, No Apparent Distress, Appropriately Dressed Respiratory: Yes: Within Normal Limits, Lungs Clear, Normal Breath Sounds, No Accessory Muscle Use Cardiology: Yes: Regular Rhythm, Regular Rate Abdominal: Yes: Normal Bowel Sounds, Non Tender, Flat, Soft Extremities: Yes: Non-Tender Integumentary: Yes: Normal Color, Dry, Warm, Track Louie, Other (Multiple lesions on the UE & LE) - Diagnostic (1) Cocaine abuse, uncomplicated Current Visit: No Status: Acute (2) Opioid dependence with withdrawal Current Visit: No Status: Acute (3) Cocaine use disorder Current Visit: No Status: Chronic (4) Opioid use disorder Current Visit: No Status: Chronic (5) Tobacco use disorder Current Visit: No Status: Chronic (6) Homeless Current Visit: No Status: Suspected Cleared for Admission [facility] - Detox or Rehab [facility] Level of Care: Medically Managed Breathalyzer - Breathalyzer Breathalyzer: 0 Vital Signs - Vital Signs Vital signs refused: No Temperature: 98.5 F Pulse Rate: 79 Respiratory Rate: 18 Blood Pressure: 113/66 - Height Height: 1.78 m - Weight Weight: 68.946 kg - BMI Body Mass Index (BMI): 21.8 Urine Drug Screen - Test Device Lot number: [id number] Expiration date: 01/02/22 - Control Is test valid?: Yes - Results Drug screen NEGATIVE: No Urine drug screen results: THC-Marijuana, LAN-Cocaine, FEN-Fentanyl, MOP-Opiates Inpatient Rehab Admission - Rehab Decision to Admit Inpatient rehab admission?: No
[2020-05-23] MEDS ORDERED: MENTHOL/PHENOL 1 EACH UD MM PRN (13:10)
[2020-05-23] MEDS ORDERED: ACETAMINOPHEN 325 MG TABLET (FP) PO PRN ×2 (13:10)
[2020-05-23] MEDS ORDERED: IBUPROFEN 400 MG TABLET (FP) PO PRN (13:10)
[2020-05-23] MEDS ORDERED: NICOTINE POLACRILEX 2 MG GUM BUC PRN (13:10)
[2020-05-23] MEDS ORDERED: MAG HYDROX/AL HYDROX/SIMETH 30 ML UNIT-DOSE CUP PO PRN (13:10)
[2020-05-23] MEDS ORDERED: cloNIDine HCL 0.1 MG TABLET PO PRN (13:10)
[2020-05-23] MEDS ORDERED: MAGNESIUM HYDROX 2400MG/30ML ORAL SUSPENSION 30 ML CUP PO PRN (13:10)
[2020-05-23] MEDS ORDERED: MAGNESIUM CITRATE 300 ML BOTTLE PO PRN (13:10)
[2020-05-23] MEDS ORDERED: BISMUTH SUBSALICYLATE 524 MG/30 ML UD PO PRN (13:10)
[2020-05-23 13:41] VITALS: BMI 21.8
[2020-05-23] MEDS ORDERED: METHADONE HCL 10 MG TABLET (FOR DETOX USE ONLY) PO ONE (13:45)
[2020-05-23] MEDS ORDERED: ONDANSETRON *ODT* 4 MG TABLET SL ONE (14:00)
[2020-05-23] MEDS: METHOCARBAMOL 500 MG TABLET PO PRN (14:24)
[2020-05-23] MEDS: hydrOXYzine PAMOATE 25 MG CAPSULE (FP) PO SCH ×3 (14:25→22:14)
[2020-05-23 14:52] LABS: HEMATOCRIT 36.5 % (35.4-49); HEMOGLOBIN 11.7 GM/dL (11.7-16.9); MCH 24.4 pg (25.7-33.7); MCHC 32.2 g/dl (32.0-35.9); MEAN CELL VOLUME 75.8 fl (80-96); MEAN PLT VOLUME 7.6 fl (7.5-11.1); PLATELET COUNT 358 K/MM3 (134-434); RBC 4.81 M/mm3 (4.00-5.60); WHITE BLOOD COUNT 6.1 K/mm3 (4.0-10.0)
[2020-05-23 15:14] LABS: ALBUMIN 3.5 g/dl (3.4-5.0); BILIRUBIN,TOTAL 0.2 mg/dL (0.2-1); BLOOD UREA NITROGEN 13.5 mg/dL (7-18); CALCIUM 8.9 mg/dL (8.5-10.1); TOT PROT 6.7 g/dl (6.4-8.2)
--- NOTE | 2020-05-23 15:29 | EKG ---
Test Reason : Blood Pressure : / mmHG Vent. Rate : 068 BPM Atrial Rate : 068 BPM P-R Int : 136 ms QRS Dur : 104 ms QT Int : 380 ms P-R-T Axes : 035 029 017 degrees QTc Int : 404 ms NORMAL SINUS RHYTHM RSR' OR QR PATTERN IN V1 SUGGESTS RIGHT VENTRICULAR CONDUCTION DELAY BORDERLINE ECG NO PREVIOUS ECGS AVAILABLE Confirmed by SHARMIN RICE MD ([id number]) on 05/23/2020 3:28:58 PM Referred By: Confirmed By:SHARMIN RICE MD
[2020-05-23 16:25] LABS: POTASSIUM 4.1 mmol/L (3.5-5.1)
[2020-05-23] MEDS: MELATONIN 5 MG TABLETS PO SCH (22:14)
[2020-05-23] MEDS: THIAMINE HCL 100 MG TABLET (FP) PO SCH (22:14)
[2020-05-24] MEDS: hydrOXYzine PAMOATE 25 MG CAPSULE (FP) PO SCH ×5 (06:26→23:14)
--- NOTE | 2020-05-24 09:16 | PN ---
Teaching Attending Note Name of Resident: Lisandro Feliciano ATTENDING PHYSICIAN STATEMENT I saw and evaluated the patient. I reviewed the resident's note and discussed the case with the resident. I agree with the resident's findings and plan as documented. SUBJECTIVE: OBJECTIVE: ASSESSMENT AND PLAN: Agree with resident's findings and plan for detox.
[2020-05-24] MEDS ORDERED: METHADONE HCL 5 MG TABLET (FOR DETOX USE ONLY) ONE (09:20)
[2020-05-24] MEDS ORDERED: METHADONE HCL 10 MG TABLET (FOR DETOX USE ONLY) ONE (09:20)
[2020-05-24] MEDS ORDERED: diazePAM 5 MG TABLET PO PRN (09:49)
[2020-05-24] MEDS ORDERED: METHADONE (DETOX) 20 MG, METHADONE (DETOX) 5 MG PO ONE (10:00)
[2020-05-24] MEDS: PRENATAL VITAMINS W/ FOLIC ACID TABLET (FP) PO SCH (10:18)
[2020-05-24] MEDS: NICOTINE 7 MG/24 HOURS TOPICAL PATCH TD SCH (10:18)
--- NOTE | 2020-05-24 11:29 | PN ---
[facility] COWS - Scale Resting Pulse: 0= [place] 80 or Below Sweatin= No chills or Flushing Restless Observation: 1= Difficult to Sit Still Pupil Size: 1= Pupils >than Normal Bone or Joint Aches: 2= Severe Diffuse Aches Runny Nose/ Eye Tearin= Runny Nose/Eyes GI Upset > 30mins: 3= Vomiting/Diarrhea Tremor Observation of Outstretched Hands: 2= Slight Tremor Visible Yawning Observation: 1= 1-2x During Session Anxiety or Irritability: 2=Irritable/Anxious Goose Flesh Skin: 0=Smooth Skin COWS Score: 14 [facility] Progress Note (SOAP) Subjective: alert,irritable,anxious,interrupted sleep,pain in the body and back Objective: 05/24/20 11:27 Vital Signs Temperature 98.9 F 05/24/20 08:20 Pulse Rate 63 05/24/20 08:20 Respiratory Rate 17 05/24/20 08:20 Blood Pressure 113/73 05/24/20 08:20 O2 Sat by Pulse Oximetry (%) 98 05/24/20 06:16 Assessment: 05/24/20 11:27 withdrawal symptom Plan: continue detox methadone regimen,valium 10 mgs po q 4 hrs prn for severe withdrawal for 72 hrs
--- NOTE | 2020-05-24 18:14 | CONSULT ---
[facility] Psychiatric Consult - Data Date of interview: 05/24/20 Admission source: [facility] Identifying data: Dehydrogenation Converter Helper made THREE visits at bedside. Patient is found asleep. No evidence of distress. Foodtray at bedside indicates that the patient ate his meals. Psychiatry-Liaison will consult upon renewal of request (if patient consents). Nursing staff is made aware.
[2020-05-24] MEDS: THIAMINE HCL 100 MG TABLET (FP) PO SCH (23:14)
[2020-05-24] MEDS: MELATONIN 5 MG TABLETS PO SCH (23:14)
[2020-05-25] MEDS: hydrOXYzine PAMOATE 25 MG CAPSULE (FP) PO SCH ×5 (07:09→22:48)
--- NOTE | 2020-05-25 09:10 | PN ---
[facility] COWS - Scale Resting Pulse: 1= [place] 81-100 Sweatin= Chills/Flushing Restless Observation: 1= Difficult to Sit Still Pupil Size: 0= Normal to Room Light Bone or Joint Aches: 2= Severe Diffuse Aches Runny Nose/ Eye Tearin= None GI Upset > 30mins: 0= None Tremor Observation of Outstretched Hands: 0= None Yawning Observation: 2= >3x During Session Anxiety or Irritability: 2=Irritable/Anxious Goose Flesh Skin: 0=Smooth Skin COWS Score: 9 [facility] Progress Note (SOAP) Subjective: c/o irritability, anxiety, muscle aches, and sweats. Objective: 05/25/20 09:09 Vital Signs 05/25/20 05/25/20 05:08 09:04 Temperature 97.1 F L 97.3 F L Pulse Rate 96 H 61 Respiratory 18 18 Rate Blood Pressure 104/70 116/67 O2 Sat by Pulse 96 Oximetry (%) Laboratory Last Values WBC 6.1 K/mm3 (4.0-10.0) 05/23/20 12:30 RBC 4.81 M/mm3 (4.00-5.60) 05/23/20 12:30 Hgb 11.7 GM/dL (11.7-16.9) 05/23/20 12:30 Hct 36.5 % (35.4-49) 05/23/20 12:30 MCV 75.8 fl (80-96) L 05/23/20 12:30 MCH 24.4 pg (25.7-33.7) L 05/23/20 12:30 MCHC 32.2 g/dl (32.0-35.9) 05/23/20 12:30 RDW 16.0 % (11.9-15.9) H 05/23/20 12:30 Plt Count 358 K/MM3 (134-434) 05/23/20 12:30 MPV 7.6 fl (7.5-11.1) 05/23/20 12:30 Sodium 140 mmol/L (136-145) 05/23/20 12:30 Potassium 4.1 mmol/L (3.5-5.1) 05/23/20 12:30 Chloride 105 mmol/L (98-107) 05/23/20 12:30 Carbon Dioxide 28 mmol/L (21-32) 05/23/20 12:30 Anion Gap 7 MMOL/L (8-16) L 05/23/20 12:30 BUN 13.5 mg/dL (7-18) 05/23/20 12:30 Creatinine 1.0 mg/dL (0.55-1.3) 05/23/20 12:30 Est GFR (CKD-EPI)AfAm 112.51 05/23/20 12:30 Est GFR (CKD-EPI)NonAf 97.08 05/23/20 12:30 Random Glucose 86 mg/dL (74-106) 05/23/20 12:30 Calcium 8.9 mg/dL (8.5-10.1) 05/23/20 12:30 Total Bilirubin 0.2 mg/dL (0.2-1) 05/23/20 12:30 AST 15 U/L (15-37) 05/23/20 12:30 ALT 18 U/L (13-61) 05/23/20 12:30 Alkaline Phosphatase 114 U/L (45-117) 05/23/20 12:30 Total Protein 6.7 g/dl (6.4-8.2) 05/23/20 12:30 Albumin 3.5 g/dl (3.4-5.0) 05/23/20 12:30 TSH Cancelled 05/24/20 08:10 Free T4 1.20 ng/dl (0.76-1.16) H 05/23/20 12:30 Free T4 Cancelled 05/23/20 12:30 Syphilis Serology Non-reactive (NONREACTIVE) 05/23/20 12:30 COVID-19 (FELICITAS) Not detected (Not Detected) 05/23/20 12:30 HIV Ag/Ab Combo Qual Negative (NEGATIVE) 05/23/20 12:30 Labs noted. 05/25/20 09:26 Assessment: 05/25/20 09:10 AOX3, in no acute respiratory distress. Full ROM, ambulating in the unit. Withdrawal symptoms. Plan: continue detox.
[2020-05-25] MEDS ORDERED: METHADONE HCL 10 MG TABLET (FOR DETOX USE ONLY) PO ONE (10:00)
[2020-05-25] MEDS: PRENATAL VITAMINS W/ FOLIC ACID TABLET (FP) PO SCH (10:31)
[2020-05-25] MEDS: NICOTINE 7 MG/24 HOURS TOPICAL PATCH TD SCH (10:31)
[2020-05-25] MEDS: MELATONIN 5 MG TABLETS PO SCH (22:47)
[2020-05-25] MEDS: THIAMINE HCL 100 MG TABLET (FP) PO SCH (22:48)
[2020-05-26] MEDS: hydrOXYzine PAMOATE 25 MG CAPSULE (FP) PO SCH (06:47)
[2020-05-26] MEDS ORDERED: hydrOXYzine PAMOATE 25 MG CAPSULE (FP) PO PRN (09:19)
--- NOTE | 2020-05-26 09:22 | PN ---
[facility]HS COWS - Scale Resting Pulse: 0= [place] 80 or Below Sweatin= No chills or Flushing Restless Observation: 0= Sits Still Pupil Size: 1= Pupils >than Normal Bone or Joint Aches: 1= Mild Discomfort Runny Nose/ Eye Tearin= None GI Upset > 30mins: 1= Stomach Cramp Tremor Observation of Outstretched Hands: 2= Slight Tremor Visible Yawning Observation: 1= 1-2x During Session Anxiety or Irritability: 1=Feels Anxious/Irritable Goose Flesh Skin: 0=Smooth Skin COWS Score: 7 [facility] Progress Note (SOAP) Subjective: 34 years old male was admitted on 05/23/20 for opiate withdrawal sx management treating with methadone detox regiment ate breakfast in room resting in bed limited conversation with staff bmi 21.8 ensure 120 ml po tid with meals change vistaril to prn Objective: 05/26/20 09:23 Vital Signs - 24 hr 05/25/20 05/25/20 05/25/20 13:02 16:46 20:55 Temperature 97.3 F L 97.2 F L 97.7 F Pulse Rate 59 L 59 L 51 L Respiratory 16 16 16 Rate Blood Pressure 96/59 L 114/60 96/60 O2 Sat by Pulse 96 100 Oximetry (%) 05/26/20 05/26/20 05:23 08:35 Temperature 96.7 F L 97.3 F L Pulse Rate 52 L 56 L Respiratory 16 18 Rate Blood Pressure 99/61 139/75 O2 Sat by Pulse 98 Oximetry (%) Laboratory Tests 05/23/20 05/23/20 05/23/20 12:30 12:30 12:30 WBC RBC Hgb Hct MCV MCH MCHC RDW Plt Count MPV Sodium Potassium Chloride Carbon Dioxide Anion Gap BUN Creatinine Est GFR (CKD-EPI)AfAm Est GFR (CKD-EPI)NonAf Random Glucose Calcium Total Bilirubin AST ALT Alkaline Phosphatase Total Protein Albumin TSH Free T4 Syphilis Serology Non-reactive COVID-19 (FELICITAS) Not detected HIV Ag/Ab Combo Qual Negative 05/23/20 05/23/20 05/23/20 12:30 12:30 12:30 WBC 6.1 RBC 4.81 Hgb 11.7 Hct 36.5 MCV 75.8 L MCH 24.4 L MCHC 32.2 RDW 16.0 H Plt Count 358 MPV 7.6 Sodium 140 Potassium 4.1 Chloride 105 Carbon Dioxide 28 Anion Gap 7 L BUN 13.5 Creatinine 1.0 Est GFR (CKD-EPI)AfAm 112.51 Est GFR (CKD-EPI)NonAf 97.08 Random Glucose 86 Calcium 8.9 Total Bilirubin 0.2 AST 15 ALT 18 Alkaline Phosphatase 114 Total Protein 6.7 Albumin 3.5 TSH 0.32 L Free T4 1.20 H Cancelled Syphilis Serology COVID-19 (FELICITAS) HIV Ag/Ab Combo Qual 05/24/20 08:10 WBC RBC Hgb Hct MCV MCH MCHC RDW Plt Count MPV Sodium Potassium Chloride Carbon Dioxide Anion Gap BUN Creatinine Est GFR (CKD-EPI)AfAm Est GFR (CKD-EPI)NonAf Random Glucose Calcium Total Bilirubin AST ALT Alkaline Phosphatase Total Protein Albumin TSH Cancelled Free T4 Syphilis Serology COVID-19 (FELICITAS) HIV Ag/Ab Combo Qual 05/26/20 09:24 low tsh elevation t4 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
[2020-05-26] MEDS ORDERED: METHADONE HCL 10 MG TABLET (FOR DETOX USE ONLY) ONE (09:39)
[2020-05-26] MEDS ORDERED: METHADONE HCL 5 MG TABLET (FOR DETOX USE ONLY) ONE (09:40)
[2020-05-26] MEDS: NICOTINE 7 MG/24 HOURS TOPICAL PATCH TD SCH (09:47)
[2020-05-26] MEDS: PRENATAL VITAMINS W/ FOLIC ACID TABLET (FP) PO SCH (09:47)
[2020-05-26] MEDS ORDERED: METHADONE (DETOX) 10 MG, METHADONE (DETOX) 5 MG PO ONE (10:00)
[2020-05-26] MEDS: MELATONIN 5 MG TABLETS PO SCH (22:47)
[2020-05-26] MEDS: THIAMINE HCL 100 MG TABLET (FP) PO SCH (22:48)
[2020-05-27] MEDS ORDERED: METHADONE HCL 10 MG TABLET (FOR DETOX USE ONLY) PO ONE (10:00)
[2020-05-27] MEDS: NICOTINE 7 MG/24 HOURS TOPICAL PATCH TD SCH (10:23)
[2020-05-27] MEDS: PRENATAL VITAMINS W/ FOLIC ACID TABLET (FP) PO SCH (10:23)
[2020-05-27] MEDS: METHOCARBAMOL 500 MG TABLET PO PRN (10:24)
--- NOTE | 2020-05-27 15:12 | PN ---
BHS COWS - Scale Resting Pulse: 0= [place] 80 or Below Sweatin= Chills/Flushing Restless Observation: 0= Sits Still Pupil Size: 0= Normal to Room Light Bone or Joint Aches: 1= Mild Discomfort Runny Nose/ Eye Tearin= None GI Upset > 30mins: 1= Stomach Cramp Tremor Observation of Outstretched Hands: 1= Tremor Raymond, Not Seen Yawning Observation: 0= None Anxiety or Irritability: 1=Feels Anxious/Irritable Goose Flesh Skin: 0=Smooth Skin COWS Score: 5 [facility] Progress Note (SOAP) Subjective: 34 years old male was admitted on 05/23/20 for opiate withdrawal sx management treating with methadone detox regiment feels better today less general body aches no abdominal cramp discussing aftercare with staff mr gresham prefers [facility] for opiate abuse treatment encourage mr gresham to cloth picker narcan from pharmacy Objective: 05/27/20 15:18 Vital Signs - 24 hr 05/26/20 05/26/20 05/27/20 16:28 20:24 05:01 Temperature 97.5 F L 97.2 F L 97.3 F L Pulse Rate 54 L 59 L 53 L Respiratory 18 18 17 Rate Blood Pressure 106/65 122/64 105/66 O2 Sat by Pulse 99 100 Oximetry (%) 05/27/20 05/27/20 08:37 12:32 Temperature 98.2 F 97.3 F L Pulse Rate 71 67 Respiratory 18 18 Rate Blood Pressure 116/66 138/72 O2 Sat by Pulse 99 Oximetry (%) Laboratory Tests 05/23/20 05/23/20 05/23/20 12:30 12:30 12:30 WBC RBC Hgb Hct MCV MCH MCHC RDW Plt Count MPV Sodium Potassium Chloride Carbon Dioxide Anion Gap BUN Creatinine Est GFR (CKD-EPI)AfAm Est GFR (CKD-EPI)NonAf Random Glucose Calcium Total Bilirubin AST ALT Alkaline Phosphatase Total Protein Albumin TSH Free T4 Syphilis Serology Non-reactive COVID-19 (FELICITAS) Not detected HIV Ag/Ab Combo Qual Negative 05/23/20 05/23/20 05/23/20 12:30 12:30 12:30 WBC 6.1 RBC 4.81 Hgb 11.7 Hct 36.5 MCV 75.8 L MCH 24.4 L MCHC 32.2 RDW 16.0 H Plt Count 358 MPV 7.6 Sodium 140 Potassium 4.1 Chloride 105 Carbon Dioxide 28 Anion Gap 7 L BUN 13.5 Creatinine 1.0 Est GFR (CKD-EPI)AfAm 112.51 Est GFR (CKD-EPI)NonAf 97.08 Random Glucose 86 Calcium 8.9 Total Bilirubin 0.2 AST 15 ALT 18 Alkaline Phosphatase 114 Total Protein 6.7 Albumin 3.5 TSH 0.32 L Free T4 1.20 H Cancelled Syphilis Serology COVID-19 (FELICITAS) HIV Ag/Ab Combo Qual 05/24/20 08:10 WBC RBC Hgb Hct MCV MCH MCHC RDW Plt Count MPV Sodium Potassium Chloride Carbon Dioxide Anion Gap BUN Creatinine Est GFR (CKD-EPI)AfAm Est GFR (CKD-EPI)NonAf Random Glucose Calcium Total Bilirubin AST ALT Alkaline Phosphatase Total Protein Albumin TSH Cancelled Free T4 Syphilis Serology COVID-19 (FELICITAS) HIV Ag/Ab Combo Qual mr gresham will follow up low tsh high free t4 with [facility] Assessment: 05/27/20 15:21 opiate withdrawal Plan: methadone regiment
[2020-05-27] MEDS: MELATONIN 5 MG TABLETS PO SCH (22:13)
[2020-05-27] MEDS: THIAMINE HCL 100 MG TABLET (FP) PO SCH (22:14)
[2020-05-28] MEDS ORDERED: METHADONE HCL 5 MG TABLET (FOR DETOX USE ONLY) PO ONE (06:00)
[2020-05-28 09:13] VITALS: BP 103/63; PULSE 58; TEMP 97.8
[2020-05-28] MEDS: PRENATAL VITAMINS W/ FOLIC ACID TABLET (FP) PO SCH (10:26)
[2020-05-28] MEDS: NICOTINE 7 MG/24 HOURS TOPICAL PATCH TD SCH (10:26)
--- NOTE | 2020-05-28 14:14 | DS ---
[facility] Detox Discharge Summary Admission Date: 05/23/20 Discharge Date: 05/28/20 - History Present History: Opioid Dependence, Sedative Dependence Additional Comments: 34 years old male was admitted on 05/23/20 for opiate withdrawal sx management treated with methadone detox regiment seen by psychiatrist no medical intervention mr gresham has completed methadone regiment and is tolerate well General Appearance: Yes: Within Normal Limits, No Apparent Distress, Appropriately Dressed Respiratory: Yes: Within Normal Limits, Lungs Clear, Normal Breath Sounds, No Accessory Muscle Use Cardiology: Yes: Regular Rhythm, Regular Rate Abdominal: Yes: Normal Bowel Sounds, Non Tender, Flat, Soft Extremities: Yes: Non-Tender Integumentary: Yes: Normal Color, Dry, Warm, Track Louie, Other (Multiple lesions on the UE & LE) Pertinent Past History: time for discharge 46 minutes transferred order set from detox to rehab - Physical Exam Results Vital Signs: Vital Signs Temperature 97.8 F 05/28/20 08:55 Pulse Rate 58 L 05/28/20 08:55 Respiratory Rate 18 05/28/20 08:55 Blood Pressure 103/63 05/28/20 08:55 O2 Sat by Pulse Oximetry (%) 98 05/28/20 06:22 Pertinent Admission Physical Exam Findings: opiate withdrawal Laboratory Tests 05/23/20 05/23/20 05/23/20 12:30 12:30 12:30 WBC RBC Hgb Hct MCV MCH MCHC RDW Plt Count MPV Sodium Potassium Chloride Carbon Dioxide Anion Gap BUN Creatinine Est GFR (CKD-EPI)AfAm Est GFR (CKD-EPI)NonAf Random Glucose Calcium Total Bilirubin AST ALT Alkaline Phosphatase Total Protein Albumin TSH Free T4 Syphilis Serology Non-reactive COVID-19 (FELICITAS) Not detected HIV Ag/Ab Combo Qual Negative 05/23/20 05/23/20 05/23/20 12:30 12:30 12:30 WBC 6.1 RBC 4.81 Hgb 11.7 Hct 36.5 MCV 75.8 L MCH 24.4 L MCHC 32.2 RDW 16.0 H Plt Count 358 MPV 7.6 Sodium 140 Potassium 4.1 Chloride 105 Carbon Dioxide 28 Anion Gap 7 L BUN 13.5 Creatinine 1.0 Est GFR (CKD-EPI)AfAm 112.51 Est GFR (CKD-EPI)NonAf 97.08 Random Glucose 86 Calcium 8.9 Total Bilirubin 0.2 AST 15 ALT 18 Alkaline Phosphatase 114 Total Protein 6.7 Albumin 3.5 TSH 0.32 L Free T4 1.20 H Cancelled Syphilis Serology COVID-19 (FELICITAS) HIV Ag/Ab Combo Qual 05/24/20 08:10 WBC RBC Hgb Hct MCV MCH MCHC RDW Plt Count MPV Sodium Potassium Chloride Carbon Dioxide Anion Gap BUN Creatinine Est GFR (CKD-EPI)AfAm Est GFR (CKD-EPI)NonAf Random Glucose Calcium Total Bilirubin AST ALT Alkaline Phosphatase Total Protein Albumin TSH Cancelled Free T4 Syphilis Serology COVID-19 (FELICITAS) HIV Ag/Ab Combo Qual lab noted Vital Signs - 24 hr 05/27/20 05/27/20 05/28/20 16:23 20:53 06:22 Temperature 97.2 F L 97.3 F L Pulse Rate 65 67 64 Respiratory 18 18 18 Rate Blood Pressure 110/67 103/59 L 107/66 O2 Sat by Pulse 98 98 Oximetry (%) 05/28/20 08:55 Temperature 97.8 F Pulse Rate 58 L Respiratory 18 Rate Blood Pressure 103/63 O2 Sat by Pulse Oximetry (%) - Treatment Hospital Course: Detox Protocol Followed, Detoxed Safely, Responded well, Discharged Condition Good, Rehab Referral Accepted Patient has Accepted a [facility] Referral [facility]: [facility] - Medication Discharge Medications: Ambulatory Orders Naloxone HCl [Narcan] 4 mg NS ASDIR PRN #1 spray 05/27/20 - Diagnosis (1) Opioid dependence with withdrawal Status: Acute (2) Substance induced mood disorder Status: Suspected - AMA Did Patient Leave Against Medical Advice: No COWS (PN) - Opiate Withdrawal Resting Pulse: 0= [place] 80 or Below Sweatin= No chills or Flushing Restless Observation: 0= Sits Still Pupil Size: 0= Normal to Room Light Bone or Joint Aches: 1= Mild Discomfort Runny Nose/ Eye Tearin= None GI Upset > 30mins: 0= None Tremor Observation of Outstretched Hands: 1= Tremor Dawson, Not Seen Yawning Observation: 0= None Anxiety or Irritability: 1=Feels Anxious/Irritable Goose Flesh Skin: 0=Smooth Skin COWS Score: 3
== END 2020-05-28 12:22 | disposition other institution (70) | DRG 773 ==
LOC: YASAS 11:29 → Y3N 12:34
PROVIDERS: ADMIT Allergy & Immunology; ATTEND Allergy & Immunology
PROC: HZ2ZZZZ Detoxification Services for Substance Abuse Treatment (ICD-10-PCS; principal; 2020-05-23)
DX: F11.23 Opioid dependence with withdrawal (principal); F14.20 Cocaine dependence, uncomplicated; F17.210 Nicotine dependence, cigarettes, uncomplicated; F19.24 Other psychoactive substance dependence with psychoactive substance-induced mood disorder; Z59.0 Homelessness
CPT/HCPCS: 36415; 80053; 84439; 84443; 85027; 86780; 87389; 93005; 93010; Q0162; U0003

== ENCOUNTER 2020-05-28 12:38 | Inpatient (IN) | payer OTHER ==
[2020-05-28 13:52] VITALS: TEMP 98
[2020-05-28] MEDS ORDERED: LOPERAMIDE HCL 2 MG CAPSULE PO PRN (14:10)
[2020-05-28] MEDS ORDERED: P-EPHED 60MG/TRIPROLIDI 2.5MG TABLET PO PRN (14:10)
[2020-05-28] MEDS ORDERED: IBUPROFEN 400 MG TABLET (FP) PO PRN (14:10)
[2020-05-28] MEDS ORDERED: MAG HYDROX/AL HYDROX/SIMETH 30 ML UNIT-DOSE CUP PO PRN (14:10)
[2020-05-28] MEDS ORDERED: ACETAMINOPHEN 325 MG TABLET (FP) PO PRN (14:10)
[2020-05-28] MEDS ORDERED: MAGNESIUM CITRATE 300 ML BOTTLE PO PRN (14:10)
[2020-05-28] MEDS ORDERED: NICOTINE POLACRILEX 2 MG GUM BC PRN (14:10)
[2020-05-28] MEDS ORDERED: guaiFENesin 200 MG/10 ML 10 ML UNIT-DOSE CUPS PO PRN (14:10)
[2020-05-28] MEDS ORDERED: MAGNESIUM HYDROX 2400MG/30ML ORAL SUSPENSION 30 ML CUP PO PRN (14:10)
--- NOTE | 2020-05-28 14:10 | HP ---
[facility] Rehab Assess/Revision - Admission History Admitted to Rehab from: [facility] Date of Admission to Rehab: 05/28/20 - Vital signs Vital Signs: Vital Signs Period Temp Pulse Resp BP Sys/Lew Pulse Ox Last 24 Hr 98.0 F 84 20 123/70 97 - Findings Detox History & Physical reviewed: Yes Concur with findings: Yes Comments/Additional Findings: trasnferred from detox to rehab admission as per protocol Inpatient Rehab Admission - Rehab Decision to Admit Inpatient rehab admission?: Yes - Initial Determination Are CD services needed?: Yes Free of communicable disease: Yes Not in need of hospitalization: Yes - Rehab Admission Criteria Previous failed treatment: Yes Poor recovery environment: Yes Comorbidities: Yes Lacks judgement: Yes Patient is meeting Inpatient Rehab admission criteria:: Yes
[2020-05-28] MEDS ORDERED: METHOCARBAMOL 500 MG TABLET PO PRN (14:41)
[2020-05-28] MEDS ORDERED: hydrOXYzine PAMOATE 25 MG CAPSULE (FP) PO PRN (14:43)
[2020-05-28] MEDS ORDERED: THIAMINE HCL 100 MG TABLET (FP) PO SCH (22:00)
[2020-05-28] MEDS ORDERED: MELATONIN 5 MG TABLETS PO SCH (22:00)
[2020-05-29 06:53] VITALS: BP 117/68; PULSE 83
[2020-05-29] MEDS ORDERED: NICOTINE 7 MG/24 HOURS TOPICAL PATCH TD SCH (10:00)
[2020-05-29] MEDS ORDERED: PRENATAL VITAMINS W/ FOLIC ACID TABLET (FP) PO SCH (10:00)
--- NOTE | 2020-05-29 14:51 | DS ---
[facility] Rehab Discharge Summary - [facility] Rehab Discharge Summary Admission Date: 05/28/20 Discharge Date: 05/29/20 - History Present History: Cocaine dependence, Opioid dependence Pertinent Past History: Abrasions and escoriations Lower extremities. - Discharge Physical Exam Vital Signs: Vital Signs Temperature 98.0 F 05/29/20 06:13 Pulse Rate 83 05/29/20 06:13 Respiratory Rate 18 05/29/20 06:13 Blood Pressure 117/68 05/29/20 06:13 O2 Sat by Pulse Oximetry (%) 96 05/29/20 12:26 General:Alert o x 3, coherent, denies s/h/i Resp;nad, pulse ox 96% MSK/Skin:oob ambulating with steady gait;Active FROM, all limbs; skin with dry abrasions, elliot.no edema. Pertinent Admission Physical Exam Findings: s/p detox Lower extremities abrasion - Treatment Discharge Condition: Discharge condition good, Rehabilitated safely, Outpatient referral accepted Hospital Course: Pt is a 34 y/o male admitted to rehab after completing detox treatment but requesting to voluntary discharge today states "I'm not ready to stay more". Pt was seen by a counselor Mr. Jose Hubbard and referred pt to aftercare to follow up for continuing treatment. Pt states he is going to [place] today. Pt reports he does not have PCP but goes to [facility] when needed. Pt has accepted CD aftercare to [facility]. - Medication Discharge Medications: Ambulatory Orders Naloxone HCl [Narcan] 4 mg NS ASDIR PRN #1 spray 05/27/20 - Medication-Assisted Treatment (MAT) Medication-Assisted Treatment (MAT): No - Discharge Instructions Diet, activity, other medical instructions: Diet:Regular Activity: oob ad brian Other medical instructions:follow up with CD aftercare and Medical management as recommended. - Diagnosis (1) Abrasion of lower extremity Current Visit: Yes Status: Acute Qualifiers: Encounter type: subsequent encounter Laterality: right Qualified Code(s): S80.811D - Abrasion, right lower leg, subsequent encounter (2) Friction blister of the foot Current Visit: Yes Status: Acute Qualifiers: Encounter type: subsequent encounter Laterality: unspecified laterality Qualified Code(s): S90.829D - Blister (nonthermal), unspecified foot, subsequent encounter (3) Cocaine use disorder Current Visit: Yes Status: Chronic (4) Opioid use disorder Current Visit: Yes Status: Chronic (5) Tobacco use disorder Current Visit: Yes Status: Chronic - Follow-up Referral Minutes to complete discharge: 15 - AMA Did Patient Leave Against Medical Advice: No Additional Comments: Pt reports he has Narcan ns spray at home and does not need Rx today.
[2020-05-29] MEDS ORDERED: BACITRACIN 0.9 GM PACKET TP SCH (22:00)
== END 2020-05-29 14:55 | disposition home or self-care (01) | DRG 772 ==
LOC: YASAS 12:38 → Y5N 12:39
PROVIDERS: ADMIT Allergy & Immunology; ATTEND Allergy & Immunology
PROC: HZ42ZZZ Group Counseling for Substance Abuse Treatment, Cognitive-Behavioral (ICD-10-PCS; principal; 2020-05-28)
DX: F11.20 Opioid dependence, uncomplicated (principal); F14.20 Cocaine dependence, uncomplicated; F17.210 Nicotine dependence, cigarettes, uncomplicated; S80.811D Abrasion, right lower leg, subsequent encounter; S90.829D Blister (nonthermal), unspecified foot, subsequent encounter; X58.XXXD Exposure to other specified factors, subsequent encounter